=== PATIENT | male | born 1975 | race African-American/Black ===

== ENCOUNTER 2022-05-18 09:41 | Inpatient (IN) | payer OTHER ==
[2022-05-18 10:26] VITALS: BMI 23.5
[2022-05-18] MEDS ORDERED: LOPERAMIDE HCL 2 MG CAPSULE PO PRN (10:46)
[2022-05-18] MEDS ORDERED: DICYCLOMINE HCL 10 MG CAPSULE PO PRN (10:46)
[2022-05-18] MEDS ORDERED: ACETAMINOPHEN 325 MG TABLET (FP) PO PRN ×2 (10:46)
[2022-05-18] MEDS ORDERED: ONDANSETRON *ODT* 4 MG TABLET SL PRN (10:46)
[2022-05-18] MEDS ORDERED: MAGNESIUM CITRATE 300 ML BOTTLE PO PRN (10:46)
[2022-05-18] MEDS ORDERED: IBUPROFEN 600 MG TABLET (FP) PO PRN (10:46)
[2022-05-18] MEDS ORDERED: MAGNESIUM HYDROX 2400MG/30ML ORAL SUSPENSION 30 ML CUP PO PRN (10:46)
[2022-05-18] MEDS ORDERED: BISMUTH SUBSALICYLATE 262 MG/15 ML BTL PO PRN (10:46)
[2022-05-18] MEDS ORDERED: IBUPROFEN 400 MG TABLET (FP) PO PRN (10:46)
[2022-05-18] MEDS ORDERED: BENZOCAINE/MENTHOL (CHLORASEPTIC ) LOZENGE MM PRN (10:46)
[2022-05-18] MEDS ORDERED: MAG HYDROX/AL HYDROX/SIMETH 30 ML UNIT-DOSE CUP PO PRN (10:46)
[2022-05-18] MEDS ORDERED: chlordiazePOXIDE HCL 25 MG CAPSULE ONE (11:22)
[2022-05-18] MEDS ORDERED: NICOTINE 14 MG/24 HOURS TOPICAL PATCH TD ONE (11:22)
[2022-05-18] MEDS: chlordiazePOXIDE HCL 25 MG CAPSULE PO SCH ×3 (11:25→22:11)
[2022-05-18] MEDS: NICOTINE 14 MG/24 HOURS TOPICAL PATCH TD SCH (11:25)
[2022-05-18] MEDS: PRENATAL VITAMINS W/ FOLIC ACID TABLET (FP) PO SCH (12:16)
[2022-05-18] MEDS: hydrOXYzine PAMOATE 25 MG CAPSULE (FP) PO SCH ×3 (13:15→22:07)
[2022-05-18 14:26] LABS: ALBUMIN 3.7 g/dl (3.4-5.0); CALCIUM 8.9 mg/dL (8.5-10.1); HEMATOCRIT 36.6 % (35.4-49); HEMOGLOBIN 12.9 GM/dL (11.7-16.9); MCH 29.9 pg (25.7-33.7); MCHC 35.2 g/dl (32.0-35.9); MEAN PLT VOLUME 7.3 fl (7.5-11.1); PLATELET COUNT 234 10^3/uL (134-434); RBC 4.31 M/mm3 (4.00-5.60); RDW 13.2 % (11.9-15.9); WHITE BLOOD COUNT 3.1 K/mm3 (4.0-10.0)
[2022-05-18 14:27] LABS: BLOOD UREA NITROGEN 15.1 mg/dL (7-18)
[2022-05-18 14:30] LABS: CREATININE 0.7 mg/dL (0.55-1.3)
[2022-05-18 14:31] LABS: BILIRUBIN,TOTAL 0.7 mg/dL (0.2-1); TOT PROT 6.9 g/dl (6.4-8.2)
[2022-05-18] MEDS: NICOTINE 10 MG CARTRIDGE (INHALER) IH PRN (18:49)
[2022-05-18] MEDS ORDERED: PATIENT'S OWN MEDICATION (NON-FORMULARY) (Mometasone/Formoterol [Dulera 100 Mcg-5 Mcg Inha IH SCH (22:00)
[2022-05-18] MEDS: chlordiazePOXIDE HCL 25 MG CAPSULE PO PRN (22:07)
[2022-05-18] MEDS: THIAMINE HCL 100 MG TABLET (FP) PO SCH (22:07)
[2022-05-18] MEDS: clonazePAM 0.5 MG ODT TABLETS SL SCH (22:07)
[2022-05-18] MEDS: ATORVASTATIN CA 40 MG TABLET (FP) PO SCH (22:07)
[2022-05-18] MEDS: MELATONIN 5 MG TABLETS PO SCH (22:10)
[2022-05-18] MEDS: BUDESONIDE/FORMETEROL FUMARATE 160/4.5 mcg INHALER IH SCH (22:10)
[2022-05-19] MEDS: chlordiazePOXIDE HCL 25 MG CAPSULE PO SCH ×4 (05:38→22:05)
[2022-05-19] MEDS: hydrOXYzine PAMOATE 25 MG CAPSULE (FP) PO SCH ×5 (05:38→22:05)
[2022-05-19] MEDS: METHOCARBAMOL 500 MG TABLET PO PRN (10:13)
[2022-05-19] MEDS: PRENATAL VITAMINS W/ FOLIC ACID TABLET (FP) PO SCH (10:13)
[2022-05-19] MEDS: amLODIPine BESYLATE 5 MG TABLET (FP) PO SCH (10:13)
[2022-05-19] MEDS: clonazePAM 0.5 MG ODT TABLETS SL SCH ×2 (10:14→22:05)
[2022-05-19] MEDS: NICOTINE 14 MG/24 HOURS TOPICAL PATCH TD SCH (10:14)
[2022-05-19] MEDS: BUDESONIDE/FORMETEROL FUMARATE 160/4.5 mcg INHALER IH SCH ×2 (10:15→22:05)
[2022-05-19] MEDS: NICOTINE 10 MG CARTRIDGE (INHALER) IH PRN ×2 (10:48→17:38)
[2022-05-19 11:33] LABS: HIV INTERPRETATION NEGATIVE (NEGATIVE)
[2022-05-19] MEDS: LOSARTAN POTASSIUM 25 MG TABLET PO SCH (11:37)
[2022-05-19] MEDS: chlordiazePOXIDE HCL 25 MG CAPSULE PO PRN (13:29)
[2022-05-19] MEDS ORDERED: traZODone HCL 100 MG TABLET (FP) PO SCH (22:00)
[2022-05-19] MEDS ORDERED: BENZTROPINE MESYLATE 2 MG TABLET PO SCH (22:00)
[2022-05-19] MEDS: BENZTROPINE MESYLATE 1 MG TABLET PO SCH (22:05)
[2022-05-19] MEDS: ATORVASTATIN CA 40 MG TABLET (FP) PO SCH (22:05)
[2022-05-19] MEDS: MELATONIN 5 MG TABLETS PO SCH (22:05)
[2022-05-19] MEDS: THIAMINE HCL 100 MG TABLET (FP) PO SCH (22:05)
[2022-05-19] MEDS: traZODone HCL 50 MG TABLET (FP) PO SCH (22:05)
[2022-05-19] MEDS ORDERED: ASPIRIN 81 MG CHEWABLE TABLETS PO ONE (23:16)
[2022-05-20] MEDS: hydrOXYzine PAMOATE 25 MG CAPSULE (FP) PO SCH ×5 (06:19→22:41)
[2022-05-20] MEDS: chlordiazePOXIDE HCL 25 MG CAPSULE PO SCH ×4 (06:53→22:41)
[2022-05-20] MEDS ORDERED: OLANZAPINE PO SCH (10:00)
[2022-05-20] MEDS: BENZTROPINE MESYLATE 1 MG TABLET PO SCH ×2 (10:11→22:41)
[2022-05-20] MEDS: clonazePAM 0.5 MG ODT TABLETS SL SCH ×2 (10:11→22:41)
[2022-05-20] MEDS: amLODIPine BESYLATE 5 MG TABLET (FP) PO SCH (10:11)
[2022-05-20] MEDS: BUDESONIDE/FORMETEROL FUMARATE 160/4.5 mcg INHALER IH SCH ×2 (10:11→23:04)
[2022-05-20] MEDS: LOSARTAN POTASSIUM 25 MG TABLET PO SCH (10:11)
[2022-05-20] MEDS: PRENATAL VITAMINS W/ FOLIC ACID TABLET (FP) PO SCH (10:12)
[2022-05-20] MEDS: NICOTINE 14 MG/24 HOURS TOPICAL PATCH TD SCH (12:22)
[2022-05-20] MEDS: NICOTINE 10 MG CARTRIDGE (INHALER) IH PRN (17:56)
[2022-05-20] MEDS: THIAMINE HCL 100 MG TABLET (FP) PO SCH (22:41)
[2022-05-20] MEDS: ATORVASTATIN CA 40 MG TABLET (FP) PO SCH (22:41)
[2022-05-20] MEDS: traZODone HCL 50 MG TABLET (FP) PO SCH (22:41)
[2022-05-20] MEDS: MELATONIN 5 MG TABLETS PO SCH (22:41)
[2022-05-21] MEDS: METHOCARBAMOL 500 MG TABLET PO PRN ×2 (00:26→10:39)
[2022-05-21] MEDS: chlordiazePOXIDE HCL 10 MG CAPSULE PO SCH ×4 (06:10→22:32)
[2022-05-21] MEDS: hydrOXYzine PAMOATE 25 MG CAPSULE (FP) PO SCH ×5 (06:10→22:31)
[2022-05-21] MEDS ORDERED: POTASSIUM CHLORIDE ORAL LIQUID 20 MEQ/15 ML PO ONE (09:15)
[2022-05-21] MEDS: BUDESONIDE/FORMETEROL FUMARATE 160/4.5 mcg INHALER IH SCH ×2 (10:38→22:31)
[2022-05-21] MEDS: PRENATAL VITAMINS W/ FOLIC ACID TABLET (FP) PO SCH (10:39)
[2022-05-21] MEDS: BENZTROPINE MESYLATE 1 MG TABLET PO SCH ×2 (10:39→22:31)
[2022-05-21] MEDS: amLODIPine BESYLATE 5 MG TABLET (FP) PO SCH (10:39)
[2022-05-21] MEDS: LOSARTAN POTASSIUM 25 MG TABLET PO SCH (10:39)
[2022-05-21] MEDS: clonazePAM 0.5 MG ODT TABLETS SL SCH ×2 (10:39→22:31)
[2022-05-21] MEDS: NICOTINE 14 MG/24 HOURS TOPICAL PATCH TD SCH (10:41)
[2022-05-21] MEDS: NICOTINE 10 MG CARTRIDGE (INHALER) IH PRN ×3 (10:45→22:33)
[2022-05-21] MEDS: chlordiazePOXIDE HCL 10 MG CAPSULE PO PRN ×2 (13:32→20:35)
[2022-05-21] MEDS: ATORVASTATIN CA 40 MG TABLET (FP) PO SCH (22:31)
[2022-05-21] MEDS: THIAMINE HCL 100 MG TABLET (FP) PO SCH (22:31)
[2022-05-21] MEDS: traZODone HCL 50 MG TABLET (FP) PO SCH (22:31)
[2022-05-21] MEDS: MELATONIN 5 MG TABLETS PO SCH (22:31)
[2022-05-22] MEDS: chlordiazePOXIDE HCL 10 MG CAPSULE PO SCH ×2 (06:03→18:06)
[2022-05-22] MEDS: hydrOXYzine PAMOATE 25 MG CAPSULE (FP) PO SCH ×5 (06:03→22:21)
[2022-05-22] MEDS: BENZTROPINE MESYLATE 1 MG TABLET PO SCH ×2 (10:20→22:19)
[2022-05-22] MEDS: amLODIPine BESYLATE 5 MG TABLET (FP) PO SCH (10:20)
[2022-05-22] MEDS: clonazePAM 0.5 MG ODT TABLETS SL SCH ×2 (10:20→22:19)
[2022-05-22] MEDS: PRENATAL VITAMINS W/ FOLIC ACID TABLET (FP) PO SCH (10:20)
[2022-05-22] MEDS: BUDESONIDE/FORMETEROL FUMARATE 160/4.5 mcg INHALER IH SCH ×2 (10:20→22:21)
[2022-05-22] MEDS: LOSARTAN POTASSIUM 25 MG TABLET PO SCH (10:21)
[2022-05-22] MEDS: NICOTINE 14 MG/24 HOURS TOPICAL PATCH TD SCH (10:21)
[2022-05-22] MEDS: NICOTINE 10 MG CARTRIDGE (INHALER) IH PRN (11:14)
[2022-05-22] MEDS: METHOCARBAMOL 500 MG TABLET PO PRN (13:07)
[2022-05-22] MEDS ORDERED: OLANZAPINE 10 MG, OLANZAPINE 5 MG PO SCH (22:00)
[2022-05-22] MEDS ORDERED: OLANZapine 7.5 MG TABLET PO SCH (22:00)
[2022-05-22] MEDS ORDERED: OLANZapine 5 MG TABLET ONE (22:05)
[2022-05-22] MEDS ORDERED: OLANZapine 10 MG TABLET ONE (22:05)
[2022-05-22] MEDS: traZODone HCL 50 MG TABLET (FP) PO SCH (22:19)
[2022-05-22] MEDS: ATORVASTATIN CA 40 MG TABLET (FP) PO SCH (22:19)
[2022-05-22] MEDS: MELATONIN 5 MG TABLETS PO SCH (22:19)
[2022-05-22] MEDS: THIAMINE HCL 100 MG TABLET (FP) PO SCH (22:20)
[2022-05-23] MEDS ORDERED: chlordiazePOXIDE HCL 10 MG CAPSULE PO ONE (05:00)
[2022-05-23] MEDS: hydrOXYzine PAMOATE 25 MG CAPSULE (FP) PO SCH ×3 (06:22→13:12)
[2022-05-23] MEDS: amLODIPine BESYLATE 5 MG TABLET (FP) PO SCH (09:44)
[2022-05-23] MEDS: LOSARTAN POTASSIUM 25 MG TABLET PO SCH (09:44)
[2022-05-23] MEDS: clonazePAM 0.5 MG ODT TABLETS SL SCH (09:44)
[2022-05-23] MEDS: BENZTROPINE MESYLATE 1 MG TABLET PO SCH (09:44)
[2022-05-23] MEDS: PRENATAL VITAMINS W/ FOLIC ACID TABLET (FP) PO SCH (09:44)
[2022-05-23] MEDS: BUDESONIDE/FORMETEROL FUMARATE 160/4.5 mcg INHALER IH SCH (09:45)
[2022-05-23] MEDS: NICOTINE 14 MG/24 HOURS TOPICAL PATCH TD SCH (09:45)
[2022-05-23] MEDS ORDERED: OLANZapine 5 MG TABLET PO SCH (10:00)
[2022-05-23] MEDS: NICOTINE 10 MG CARTRIDGE (INHALER) IH PRN (12:35)
[2022-05-23 13:41] VITALS: BP 145/103; PULSE 98; TEMP 98.1
== END 2022-05-23 15:01 | disposition other institution (70) | DRG 774 ==
LOC: YASAS 09:41 → Y6N 11:05
PROVIDERS: ADMIT Allergy & Immunology; ATTEND Surgery
PROC: HZ2ZZZZ Detoxification Services for Substance Abuse Treatment (ICD-10-PCS; principal; 2022-05-18)
DX: F10.230 Alcohol dependence with withdrawal, uncomplicated (principal); F14.10 Cocaine abuse, uncomplicated; F12.20 Cannabis dependence, uncomplicated; F17.210 Nicotine dependence, cigarettes, uncomplicated; F25.1 Schizoaffective disorder, depressive type; I10 Essential (primary) hypertension; J45.20 Mild intermittent asthma, uncomplicated; G24.01 Drug induced subacute dyskinesia; I69.854 Hemiplegia and hemiparesis following other cerebrovascular disease affecting left non-dominant side; Z99.89 Dependence on other enabling machines and devices; Z91.013 Allergy to seafood
CPT/HCPCS: 36415; 80053; 85027; 86780; 87389; 87811; 93005; 93010; C9803-CS; U0003; U0005

== ENCOUNTER 2022-05-19 23:53 | Emergency (ER) | payer OTHER ==
[2022-05-20 00:27] VITALS: BMI 25.3
[2022-05-20] MEDS ORDERED: chlordiazePOXIDE HCL 25 MG CAPSULE PO ONE (00:56)
[2022-05-20] MEDS ORDERED: diazePAM CARPU-JECT 10 MG/2 ML DISP.SYRIN IVPUSH ONE (00:57)
[2022-05-20] MEDS ORDERED: diazePAM CARPU-JECT 10 MG/2 ML DISP.SYRIN ONE (01:33)
[2022-05-20] MEDS ORDERED: chlordiazePOXIDE HCL 25 MG CAPSULE ONE (01:34)
[2022-05-20 01:50] LABS: BASO % 0.6 % (0-2.0); EOS % 6.6 % (0-4.5); HEMATOCRIT 36.9 % (35.4-49); LYMPH % 38.2 % (8-40); MCH 29.7 pg (25.7-33.7); MCHC 35.3 g/dl (32.0-35.9); MEAN CELL VOLUME 84.2 fl (80-96); MEAN PLT VOLUME 6.8 fl (7.5-11.1); MONO % 8.2 % (3.8-10.2); NEUT % 46.4 % (42.8-82.8); PLATELET COUNT 261 10^3/uL (134-434); RBC 4.39 M/mm3 (4.00-5.60); RDW 13.5 % (11.9-15.9); WHITE BLOOD COUNT 3.4 K/mm3 (4.0-10.0)
[2022-05-20 01:57] LABS: INR 1.16 (0.83-1.09); PROTHROMBIN TIME (PATIENT) 13.4 SEC (9.7-13.0)
[2022-05-20 01:59] LABS: ACTIVATED PTT 31.1 SECONDS (25.2-36.5)
[2022-05-20 02:15] LABS: ALBUMIN 3.9 g/dl (3.4-5.0); CALCIUM 9.1 mg/dL (8.5-10.1)
[2022-05-20 02:16] LABS: BLOOD UREA NITROGEN 10.4 mg/dL (7-18)
[2022-05-20 02:18] LABS: CREATININE 0.7 mg/dL (0.55-1.3)
[2022-05-20 02:20] LABS: BILIRUBIN,TOTAL 0.5 mg/dL (0.2-1); TOT PROT 7.6 g/dl (6.4-8.2)
[2022-05-20 09:16] VITALS: BP 145/105; PULSE 74; TEMP 97.8
== END 2022-05-20 09:15 | disposition home or self-care (01) ==
LOC: JER 23:53
PROC: 3E033NZ Introduction of Analgesics, Hypnotics, Sedatives into Peripheral Vein, Percutaneous Approach (ICD-10-PCS; principal; 2022-05-19)
DX: M79.602 Pain in left arm (principal); F10.239 Alcohol dependence with withdrawal, unspecified
CPT/HCPCS: 36415; 71045-TC-FY; 80053; 84484; 85025; 85610; 85730; 93005; 93010; 99285-25

== ENCOUNTER 2022-05-23 15:32 | Inpatient (IN) | payer OTHER ==
[2022-05-23] MEDS ORDERED: guaiFENesin 200 MG/10 ML 10 ML UNIT-DOSE CUPS PO PRN (15:56)
[2022-05-23] MEDS ORDERED: MAGNESIUM HYDROX 2400MG/30ML ORAL SUSPENSION 30 ML CUP PO PRN (15:56)
[2022-05-23] MEDS ORDERED: MAGNESIUM CITRATE 300 ML BOTTLE PO PRN (15:56)
[2022-05-23] MEDS ORDERED: P-EPHED 60MG/TRIPROLIDI 2.5MG TABLET PO PRN (15:56)
[2022-05-23] MEDS ORDERED: MAG HYDROX/AL HYDROX/SIMETH 30 ML UNIT-DOSE CUP PO PRN (15:56)
[2022-05-23] MEDS ORDERED: LOPERAMIDE HCL 2 MG CAPSULE PO PRN (15:56)
[2022-05-23] MEDS ORDERED: BENZOCAINE/MENTHOL (CHLORASEPTIC ) LOZENGE MM PRN (15:56)
[2022-05-23] MEDS: NICOTINE 10 MG CARTRIDGE (INHALER) IH PRN ×2 (16:35→22:34)
[2022-05-23] MEDS: hydrOXYzine PAMOATE 25 MG CAPSULE (FP) PO PRN (18:59)
[2022-05-23] MEDS: THIAMINE HCL 100 MG TABLET (FP) PO SCH (21:30)
[2022-05-23] MEDS: ATORVASTATIN CA 40 MG TABLET (FP) PO SCH (21:30)
[2022-05-23] MEDS: MELATONIN 5 MG TABLETS PO SCH (21:30)
[2022-05-23] MEDS: BUDESONIDE/FORMETEROL FUMARATE 160/4.5 mcg INHALER IH SCH (21:31)
[2022-05-23] MEDS ORDERED: PATIENT'S OWN MEDICATION (NON-FORMULARY) (Mometasone/Formoterol [Dulera 100 Mcg-5 Mcg Inha IH SCH (22:00)
[2022-05-24] MEDS: NICOTINE 7 MG/24 HOURS TOPICAL PATCH TD SCH (10:08)
[2022-05-24] MEDS: LOSARTAN POTASSIUM 50 MG TABLET PO SCH (10:08)
[2022-05-24] MEDS: BUDESONIDE/FORMETEROL FUMARATE 160/4.5 mcg INHALER IH SCH ×2 (10:09→21:37)
[2022-05-24] MEDS: PRENATAL VITAMINS W/ FOLIC ACID TABLET (FP) PO SCH (10:09)
[2022-05-24] MEDS: amLODIPine BESYLATE 5 MG TABLET (FP) PO SCH (10:09)
[2022-05-24] MEDS: NICOTINE 10 MG CARTRIDGE (INHALER) IH PRN ×2 (10:09→21:41)
[2022-05-24] MEDS: hydrOXYzine PAMOATE 25 MG CAPSULE (FP) PO PRN ×2 (10:11→22:06)
[2022-05-24] MEDS ORDERED: clonazePAM 0.5 MG ODT TABLETS SL ONE (12:33)
[2022-05-24] MEDS: BENZTROPINE MESYLATE 1 MG TABLET PO SCH ×2 (13:19→21:37)
[2022-05-24] MEDS ORDERED: cloNIDine HCL 0.1 MG TABLET PO ONE (14:15)
[2022-05-24] MEDS: MELATONIN 5 MG TABLETS PO SCH (21:37)
[2022-05-24] MEDS: THIAMINE HCL 100 MG TABLET (FP) PO SCH (21:37)
[2022-05-24] MEDS: ATORVASTATIN CA 40 MG TABLET (FP) PO SCH (21:37)
[2022-05-24] MEDS: traZODone HCL 100 MG TABLET (FP) PO SCH (21:39)
[2022-05-24] MEDS: clonazePAM 0.5 MG ODT TABLETS SL SCH (21:40)
[2022-05-24] MEDS: OLANZapine 10 MG TABLET PO SCH (22:06)
[2022-05-25] MEDS: PRENATAL VITAMINS W/ FOLIC ACID TABLET (FP) PO SCH (09:59)
[2022-05-25] MEDS: NICOTINE 7 MG/24 HOURS TOPICAL PATCH TD SCH (10:00)
[2022-05-25] MEDS: LOSARTAN POTASSIUM 50 MG TABLET PO SCH (10:00)
[2022-05-25] MEDS: BENZTROPINE MESYLATE 1 MG TABLET PO SCH ×2 (10:00→21:21)
[2022-05-25] MEDS: amLODIPine BESYLATE 5 MG TABLET (FP) PO SCH (10:01)
[2022-05-25] MEDS: clonazePAM 0.5 MG ODT TABLETS SL SCH ×2 (10:01→21:21)
[2022-05-25] MEDS: BUDESONIDE/FORMETEROL FUMARATE 160/4.5 mcg INHALER IH SCH ×2 (10:01→21:21)
[2022-05-25] MEDS: NICOTINE 10 MG CARTRIDGE (INHALER) IH PRN ×2 (14:25→20:21)
[2022-05-25] MEDS: hydrOXYzine PAMOATE 25 MG CAPSULE (FP) PO PRN (17:24)
[2022-05-25] MEDS: THIAMINE HCL 100 MG TABLET (FP) PO SCH (21:21)
[2022-05-25] MEDS: ATORVASTATIN CA 40 MG TABLET (FP) PO SCH (21:22)
[2022-05-25] MEDS: OLANZapine 10 MG TABLET PO SCH (21:22)
[2022-05-25] MEDS: MELATONIN 5 MG TABLETS PO SCH (21:22)
[2022-05-25] MEDS: traZODone HCL 100 MG TABLET (FP) PO SCH (21:22)
[2022-05-26] MEDS: PRENATAL VITAMINS W/ FOLIC ACID TABLET (FP) PO SCH (10:25)
[2022-05-26] MEDS: BENZTROPINE MESYLATE 1 MG TABLET PO SCH ×2 (10:26→21:48)
[2022-05-26] MEDS: amLODIPine BESYLATE 5 MG TABLET (FP) PO SCH (10:26)
[2022-05-26] MEDS: clonazePAM 0.5 MG ODT TABLETS SL SCH ×2 (10:26→21:49)
[2022-05-26] MEDS: BUDESONIDE/FORMETEROL FUMARATE 160/4.5 mcg INHALER IH SCH ×2 (10:26→21:49)
[2022-05-26] MEDS: LOSARTAN POTASSIUM 50 MG TABLET PO SCH (10:27)
[2022-05-26] MEDS: NICOTINE 7 MG/24 HOURS TOPICAL PATCH TD SCH (10:28)
[2022-05-26] MEDS: NICOTINE 10 MG CARTRIDGE (INHALER) IH PRN ×3 (12:19→23:17)
[2022-05-26] MEDS: hydrOXYzine PAMOATE 25 MG CAPSULE (FP) PO PRN ×2 (14:22→21:50)
[2022-05-26] MEDS ORDERED: cloNIDine HCL 0.1 MG TABLET PO ONE ×2 (16:11→23:41)
[2022-05-26] MEDS: ATORVASTATIN CA 40 MG TABLET (FP) PO SCH (21:48)
[2022-05-26] MEDS: traZODone HCL 100 MG TABLET (FP) PO SCH (21:49)
[2022-05-26] MEDS: OLANZapine 10 MG TABLET PO SCH (21:49)
[2022-05-26] MEDS: THIAMINE HCL 100 MG TABLET (FP) PO SCH (21:49)
[2022-05-26] MEDS: MELATONIN 5 MG TABLETS PO SCH (21:54)
[2022-05-27] MEDS: hydrOXYzine PAMOATE 25 MG CAPSULE (FP) PO PRN ×3 (06:25→21:46)
[2022-05-27] MEDS: PRENATAL VITAMINS W/ FOLIC ACID TABLET (FP) PO SCH (10:24)
[2022-05-27] MEDS: BUDESONIDE/FORMETEROL FUMARATE 160/4.5 mcg INHALER IH SCH ×2 (10:25→21:45)
[2022-05-27] MEDS: amLODIPine BESYLATE 5 MG TABLET (FP) PO SCH (10:26)
[2022-05-27] MEDS: BENZTROPINE MESYLATE 1 MG TABLET PO SCH ×2 (10:26→21:46)
[2022-05-27] MEDS: LOSARTAN POTASSIUM 50 MG TABLET PO SCH (10:26)
[2022-05-27] MEDS: clonazePAM 0.5 MG ODT TABLETS SL SCH ×2 (10:27→21:46)
[2022-05-27] MEDS: NICOTINE 10 MG CARTRIDGE (INHALER) IH PRN ×2 (10:27→18:20)
[2022-05-27] MEDS: NICOTINE 7 MG/24 HOURS TOPICAL PATCH TD SCH (10:27)
[2022-05-27] MEDS: traZODone HCL 100 MG TABLET (FP) PO SCH (21:45)
[2022-05-27] MEDS: ATORVASTATIN CA 40 MG TABLET (FP) PO SCH (21:45)
[2022-05-27] MEDS: THIAMINE HCL 100 MG TABLET (FP) PO SCH (21:45)
[2022-05-27] MEDS: OLANZapine 10 MG TABLET PO SCH (21:45)
[2022-05-27] MEDS: MELATONIN 5 MG TABLETS PO SCH (21:56)
[2022-05-28] MEDS: BENZTROPINE MESYLATE 1 MG TABLET PO SCH ×2 (09:04→21:34)
[2022-05-28] MEDS: clonazePAM 0.5 MG ODT TABLETS SL SCH ×2 (09:05→21:33)
[2022-05-28] MEDS: amLODIPine BESYLATE 5 MG TABLET (FP) PO SCH (09:05)
[2022-05-28] MEDS: NICOTINE 7 MG/24 HOURS TOPICAL PATCH TD SCH (09:05)
[2022-05-28] MEDS: LOSARTAN POTASSIUM 50 MG TABLET PO SCH (09:06)
[2022-05-28] MEDS: PRENATAL VITAMINS W/ FOLIC ACID TABLET (FP) PO SCH (09:06)
[2022-05-28] MEDS: BUDESONIDE/FORMETEROL FUMARATE 160/4.5 mcg INHALER IH SCH ×2 (09:07→21:33)
[2022-05-28] MEDS: IBUPROFEN 400 MG TABLET (FP) PO PRN (09:07)
[2022-05-28] MEDS: NICOTINE 10 MG CARTRIDGE (INHALER) IH PRN ×2 (14:23→21:35)
[2022-05-28] MEDS: hydrOXYzine PAMOATE 25 MG CAPSULE (FP) PO PRN ×2 (16:43→21:34)
[2022-05-28] MEDS: ATORVASTATIN CA 40 MG TABLET (FP) PO SCH (21:33)
[2022-05-28] MEDS: traZODone HCL 100 MG TABLET (FP) PO SCH (21:34)
[2022-05-28] MEDS: THIAMINE HCL 100 MG TABLET (FP) PO SCH (21:34)
[2022-05-28] MEDS: MELATONIN 5 MG TABLETS PO SCH (21:35)
[2022-05-28] MEDS: OLANZapine 10 MG TABLET PO SCH (21:56)
[2022-05-29] MEDS: hydrOXYzine PAMOATE 25 MG CAPSULE (FP) PO PRN ×3 (06:26→21:26)
[2022-05-29] MEDS: amLODIPine BESYLATE 10 MG TABLET (FP) PO SCH ×2 (07:15→10:06)
[2022-05-29] MEDS: PRENATAL VITAMINS W/ FOLIC ACID TABLET (FP) PO SCH (10:06)
[2022-05-29] MEDS: LOSARTAN POTASSIUM 50 MG TABLET PO SCH (10:06)
[2022-05-29] MEDS: BENZTROPINE MESYLATE 1 MG TABLET PO SCH ×2 (10:06→21:25)
[2022-05-29] MEDS: clonazePAM 0.5 MG ODT TABLETS SL SCH ×2 (10:06→21:25)
[2022-05-29] MEDS: IBUPROFEN 400 MG TABLET (FP) PO PRN (10:07)
[2022-05-29] MEDS: BUDESONIDE/FORMETEROL FUMARATE 160/4.5 mcg INHALER IH SCH ×2 (10:07→22:19)
[2022-05-29] MEDS: NICOTINE 7 MG/24 HOURS TOPICAL PATCH TD SCH (10:33)
[2022-05-29] MEDS: NICOTINE 10 MG CARTRIDGE (INHALER) IH PRN ×3 (12:59→21:28)
[2022-05-29] MEDS: THIAMINE HCL 100 MG TABLET (FP) PO SCH (21:25)
[2022-05-29] MEDS: ATORVASTATIN CA 40 MG TABLET (FP) PO SCH (21:25)
[2022-05-29] MEDS: traZODone HCL 100 MG TABLET (FP) PO SCH (21:25)
[2022-05-29] MEDS: MELATONIN 5 MG TABLETS PO SCH (21:26)
[2022-05-29] MEDS: OLANZapine 10 MG TABLET PO SCH (22:19)
[2022-05-30] MEDS: hydrOXYzine PAMOATE 25 MG CAPSULE (FP) PO PRN ×3 (06:07→21:20)
[2022-05-30] MEDS: PRENATAL VITAMINS W/ FOLIC ACID TABLET (FP) PO SCH (09:58)
[2022-05-30] MEDS: amLODIPine BESYLATE 10 MG TABLET (FP) PO SCH (09:58)
[2022-05-30] MEDS: NICOTINE 7 MG/24 HOURS TOPICAL PATCH TD SCH (09:59)
[2022-05-30] MEDS: BUDESONIDE/FORMETEROL FUMARATE 160/4.5 mcg INHALER IH SCH ×2 (09:59→21:20)
[2022-05-30] MEDS: clonazePAM 0.5 MG ODT TABLETS SL SCH ×2 (09:59→21:20)
[2022-05-30] MEDS: LOSARTAN POTASSIUM 50 MG TABLET PO SCH (09:59)
[2022-05-30] MEDS: BENZTROPINE MESYLATE 1 MG TABLET PO SCH ×2 (09:59→21:20)
[2022-05-30] MEDS: NICOTINE 10 MG CARTRIDGE (INHALER) IH PRN ×2 (11:00→22:00)
[2022-05-30] MEDS: MELATONIN 5 MG TABLETS PO SCH (21:20)
[2022-05-30] MEDS: OLANZapine 10 MG TABLET PO SCH (21:20)
[2022-05-30] MEDS: THIAMINE HCL 100 MG TABLET (FP) PO SCH (21:20)
[2022-05-30] MEDS: traZODone HCL 100 MG TABLET (FP) PO SCH (21:20)
[2022-05-30] MEDS: ATORVASTATIN CA 40 MG TABLET (FP) PO SCH (21:20)
[2022-05-31] MEDS: hydrOXYzine PAMOATE 25 MG CAPSULE (FP) PO PRN ×2 (06:05→21:19)
[2022-05-31] MEDS: NICOTINE 7 MG/24 HOURS TOPICAL PATCH TD SCH (10:12)
[2022-05-31] MEDS: BUDESONIDE/FORMETEROL FUMARATE 160/4.5 mcg INHALER IH SCH ×2 (10:12→21:19)
[2022-05-31] MEDS: PRENATAL VITAMINS W/ FOLIC ACID TABLET (FP) PO SCH (10:12)
[2022-05-31] MEDS: amLODIPine BESYLATE 10 MG TABLET (FP) PO SCH (10:13)
[2022-05-31] MEDS: BENZTROPINE MESYLATE 1 MG TABLET PO SCH ×2 (10:13→21:19)
[2022-05-31] MEDS: clonazePAM 0.5 MG ODT TABLETS SL SCH ×2 (10:13→21:20)
[2022-05-31] MEDS: NICOTINE 10 MG CARTRIDGE (INHALER) IH PRN ×2 (10:14→21:21)
[2022-05-31] MEDS: LOSARTAN POTASSIUM 50 MG TABLET PO SCH (10:14)
[2022-05-31] MEDS: THIAMINE HCL 100 MG TABLET (FP) PO SCH (21:19)
[2022-05-31] MEDS: ATORVASTATIN CA 40 MG TABLET (FP) PO SCH (21:19)
[2022-05-31] MEDS: traZODone HCL 100 MG TABLET (FP) PO SCH (21:19)
[2022-05-31] MEDS: MELATONIN 5 MG TABLETS PO SCH (21:20)
[2022-05-31] MEDS: OLANZapine 10 MG TABLET PO SCH (21:20)
[2022-06-01] MEDS: hydrOXYzine PAMOATE 25 MG CAPSULE (FP) PO PRN ×3 (06:08→21:32)
[2022-06-01] MEDS: PRENATAL VITAMINS W/ FOLIC ACID TABLET (FP) PO SCH (09:51)
[2022-06-01] MEDS: BUDESONIDE/FORMETEROL FUMARATE 160/4.5 mcg INHALER IH SCH ×2 (09:51→21:31)
[2022-06-01] MEDS: amLODIPine BESYLATE 10 MG TABLET (FP) PO SCH (09:52)
[2022-06-01] MEDS: clonazePAM 0.5 MG ODT TABLETS SL SCH ×2 (09:52→21:32)
[2022-06-01] MEDS: BENZTROPINE MESYLATE 1 MG TABLET PO SCH ×2 (09:52→21:31)
[2022-06-01] MEDS: NICOTINE 7 MG/24 HOURS TOPICAL PATCH TD SCH (09:53)
[2022-06-01] MEDS: LOSARTAN POTASSIUM 50 MG TABLET PO SCH (09:53)
[2022-06-01] MEDS: NICOTINE 10 MG CARTRIDGE (INHALER) IH PRN ×3 (12:38→22:45)
[2022-06-01] MEDS: MELATONIN 5 MG TABLETS PO SCH (21:31)
[2022-06-01] MEDS: ATORVASTATIN CA 40 MG TABLET (FP) PO SCH (21:31)
[2022-06-01] MEDS: OLANZapine 10 MG TABLET PO SCH (21:32)
[2022-06-01] MEDS: traZODone HCL 100 MG TABLET (FP) PO SCH (21:32)
[2022-06-01] MEDS: THIAMINE HCL 100 MG TABLET (FP) PO SCH (21:32)
[2022-06-02] MEDS: hydrOXYzine PAMOATE 25 MG CAPSULE (FP) PO PRN ×2 (06:33→18:06)
[2022-06-02] MEDS: NICOTINE 10 MG CARTRIDGE (INHALER) IH PRN ×3 (07:24→21:21)
[2022-06-02] MEDS: amLODIPine BESYLATE 10 MG TABLET (FP) PO SCH ×2 (08:57→09:02)
[2022-06-02] MEDS: PRENATAL VITAMINS W/ FOLIC ACID TABLET (FP) PO SCH (09:01)
[2022-06-02] MEDS: BUDESONIDE/FORMETEROL FUMARATE 160/4.5 mcg INHALER IH SCH ×2 (09:01→21:22)
[2022-06-02] MEDS: clonazePAM 0.5 MG ODT TABLETS SL SCH ×2 (09:01→21:22)
[2022-06-02] MEDS: LOSARTAN POTASSIUM 50 MG TABLET PO SCH (09:01)
[2022-06-02] MEDS: NICOTINE 7 MG/24 HOURS TOPICAL PATCH TD SCH (09:02)
[2022-06-02] MEDS: BENZTROPINE MESYLATE 1 MG TABLET PO SCH ×2 (09:05→21:23)
[2022-06-02] MEDS: MELATONIN 5 MG TABLETS PO SCH (21:21)
[2022-06-02] MEDS: THIAMINE HCL 100 MG TABLET (FP) PO SCH (21:21)
[2022-06-02] MEDS: OLANZapine 10 MG TABLET PO SCH (21:22)
[2022-06-02] MEDS: ATORVASTATIN CA 40 MG TABLET (FP) PO SCH (21:23)
[2022-06-02] MEDS: traZODone HCL 100 MG TABLET (FP) PO SCH (21:23)
[2022-06-03] MEDS: amLODIPine BESYLATE 10 MG TABLET (FP) PO SCH (09:02)
[2022-06-03] MEDS: LOSARTAN POTASSIUM 50 MG TABLET PO SCH (09:02)
[2022-06-03] MEDS: ACETAMINOPHEN 325 MG TABLET (FP) PO PRN (09:02)
[2022-06-03] MEDS: BUDESONIDE/FORMETEROL FUMARATE 160/4.5 mcg INHALER IH SCH ×2 (09:52→21:40)
[2022-06-03] MEDS: clonazePAM 0.5 MG ODT TABLETS SL SCH ×2 (09:53→21:44)
[2022-06-03] MEDS: PRENATAL VITAMINS W/ FOLIC ACID TABLET (FP) PO SCH (09:53)
[2022-06-03] MEDS: NICOTINE 7 MG/24 HOURS TOPICAL PATCH TD SCH (09:53)
[2022-06-03] MEDS: BENZTROPINE MESYLATE 1 MG TABLET PO SCH ×2 (09:53→21:43)
[2022-06-03] MEDS: NICOTINE 10 MG CARTRIDGE (INHALER) IH PRN ×3 (10:53→21:45)
[2022-06-03] MEDS: hydrOXYzine PAMOATE 25 MG CAPSULE (FP) PO PRN ×2 (16:54→21:41)
[2022-06-03] MEDS: OLANZapine 10 MG TABLET PO SCH (21:42)
[2022-06-03] MEDS: ATORVASTATIN CA 40 MG TABLET (FP) PO SCH (21:42)
[2022-06-03] MEDS: traZODone HCL 100 MG TABLET (FP) PO SCH (21:43)
[2022-06-03] MEDS: MELATONIN 5 MG TABLETS PO SCH (21:44)
[2022-06-03] MEDS: THIAMINE HCL 100 MG TABLET (FP) PO SCH (21:44)
[2022-06-04] MEDS: hydrOXYzine PAMOATE 25 MG CAPSULE (FP) PO PRN ×3 (06:25→16:37)
[2022-06-04] MEDS: NICOTINE 10 MG CARTRIDGE (INHALER) IH PRN ×3 (08:44→21:36)
[2022-06-04] MEDS: PRENATAL VITAMINS W/ FOLIC ACID TABLET (FP) PO SCH (09:58)
[2022-06-04] MEDS: amLODIPine BESYLATE 10 MG TABLET (FP) PO SCH (10:00)
[2022-06-04] MEDS: BUDESONIDE/FORMETEROL FUMARATE 160/4.5 mcg INHALER IH SCH ×2 (10:00→21:33)
[2022-06-04] MEDS: clonazePAM 0.5 MG ODT TABLETS SL SCH ×2 (10:00→21:34)
[2022-06-04] MEDS: LOSARTAN POTASSIUM 50 MG TABLET PO SCH (10:00)
[2022-06-04] MEDS: NICOTINE 7 MG/24 HOURS TOPICAL PATCH TD SCH (10:01)
[2022-06-04] MEDS: BENZTROPINE MESYLATE 1 MG TABLET PO SCH ×2 (10:01→21:34)
[2022-06-04] MEDS: OLANZapine 10 MG TABLET PO SCH (21:33)
[2022-06-04] MEDS: THIAMINE HCL 100 MG TABLET (FP) PO SCH (21:33)
[2022-06-04] MEDS: traZODone HCL 100 MG TABLET (FP) PO SCH (21:34)
[2022-06-04] MEDS: ATORVASTATIN CA 40 MG TABLET (FP) PO SCH (21:34)
[2022-06-04] MEDS: MELATONIN 5 MG TABLETS PO SCH (21:34)
[2022-06-05] MEDS: PRENATAL VITAMINS W/ FOLIC ACID TABLET (FP) PO SCH (10:02)
[2022-06-05] MEDS: BUDESONIDE/FORMETEROL FUMARATE 160/4.5 mcg INHALER IH SCH ×2 (10:03→21:44)
[2022-06-05] MEDS: BENZTROPINE MESYLATE 1 MG TABLET PO SCH ×2 (10:03→21:44)
[2022-06-05] MEDS: clonazePAM 0.5 MG ODT TABLETS SL SCH ×2 (10:04→21:44)
[2022-06-05] MEDS: amLODIPine BESYLATE 10 MG TABLET (FP) PO SCH (10:04)
[2022-06-05] MEDS: LOSARTAN POTASSIUM 50 MG TABLET PO SCH (10:04)
[2022-06-05] MEDS: NICOTINE 7 MG/24 HOURS TOPICAL PATCH TD SCH (10:04)
[2022-06-05] MEDS: hydrOXYzine PAMOATE 25 MG CAPSULE (FP) PO PRN ×2 (10:05→21:45)
[2022-06-05] MEDS: NICOTINE 10 MG CARTRIDGE (INHALER) IH PRN ×4 (10:05→22:43)
[2022-06-05] MEDS: ACETAMINOPHEN 325 MG TABLET (FP) PO PRN (16:32)
[2022-06-05] MEDS: ATORVASTATIN CA 40 MG TABLET (FP) PO SCH (21:44)
[2022-06-05] MEDS: traZODone HCL 100 MG TABLET (FP) PO SCH (21:44)
[2022-06-05] MEDS: MELATONIN 5 MG TABLETS PO SCH (21:44)
[2022-06-05] MEDS: THIAMINE HCL 100 MG TABLET (FP) PO SCH (21:44)
[2022-06-05] MEDS: OLANZapine 10 MG TABLET PO SCH (21:45)
[2022-06-06] MEDS: NICOTINE 10 MG CARTRIDGE (INHALER) IH PRN ×4 (06:58→20:09)
[2022-06-06] MEDS: hydrOXYzine PAMOATE 25 MG CAPSULE (FP) PO PRN ×3 (06:58→21:44)
[2022-06-06] MEDS: clonazePAM 0.5 MG ODT TABLETS SL SCH ×2 (10:02→21:56)
[2022-06-06] MEDS: BENZTROPINE MESYLATE 1 MG TABLET PO SCH ×2 (10:02→21:44)
[2022-06-06] MEDS: PRENATAL VITAMINS W/ FOLIC ACID TABLET (FP) PO SCH (10:03)
[2022-06-06] MEDS: LOSARTAN POTASSIUM 50 MG TABLET PO SCH (10:03)
[2022-06-06] MEDS: BUDESONIDE/FORMETEROL FUMARATE 160/4.5 mcg INHALER IH SCH ×2 (10:03→21:43)
[2022-06-06] MEDS: amLODIPine BESYLATE 10 MG TABLET (FP) PO SCH (10:03)
[2022-06-06] MEDS: NICOTINE 7 MG/24 HOURS TOPICAL PATCH TD SCH (10:08)
[2022-06-06] MEDS: traZODone HCL 100 MG TABLET (FP) PO SCH (21:44)
[2022-06-06] MEDS: ATORVASTATIN CA 40 MG TABLET (FP) PO SCH (21:44)
[2022-06-06] MEDS: MELATONIN 5 MG TABLETS PO SCH (21:44)
[2022-06-06] MEDS: OLANZapine 10 MG TABLET PO SCH (21:44)
[2022-06-06] MEDS: THIAMINE HCL 100 MG TABLET (FP) PO SCH (21:56)
[2022-06-07] MEDS: clonazePAM 0.5 MG ODT TABLETS SL SCH ×2 (10:00→21:26)
[2022-06-07] MEDS: amLODIPine BESYLATE 10 MG TABLET (FP) PO SCH (10:00)
[2022-06-07] MEDS: BENZTROPINE MESYLATE 1 MG TABLET PO SCH ×2 (10:01→21:27)
[2022-06-07] MEDS: LOSARTAN POTASSIUM 50 MG TABLET PO SCH (10:01)
[2022-06-07] MEDS: BUDESONIDE/FORMETEROL FUMARATE 160/4.5 mcg INHALER IH SCH ×2 (10:02→21:26)
[2022-06-07] MEDS: NICOTINE 7 MG/24 HOURS TOPICAL PATCH TD SCH (10:03)
[2022-06-07] MEDS: NICOTINE 10 MG CARTRIDGE (INHALER) IH PRN ×3 (10:03→22:26)
[2022-06-07] MEDS: PRENATAL VITAMINS W/ FOLIC ACID TABLET (FP) PO SCH (10:03)
[2022-06-07] MEDS: hydrOXYzine PAMOATE 25 MG CAPSULE (FP) PO PRN ×2 (16:32→21:26)
[2022-06-07] MEDS: ATORVASTATIN CA 40 MG TABLET (FP) PO SCH (21:26)
[2022-06-07] MEDS: THIAMINE HCL 100 MG TABLET (FP) PO SCH (21:26)
[2022-06-07] MEDS: MELATONIN 5 MG TABLETS PO SCH (21:27)
[2022-06-07] MEDS: traZODone HCL 100 MG TABLET (FP) PO SCH (21:27)
[2022-06-07] MEDS: OLANZapine 10 MG TABLET PO SCH (21:27)
[2022-06-08] MEDS: BENZTROPINE MESYLATE 1 MG TABLET PO SCH ×2 (09:56→21:16)
[2022-06-08] MEDS: LOSARTAN POTASSIUM 50 MG TABLET PO SCH (09:56)
[2022-06-08] MEDS: PRENATAL VITAMINS W/ FOLIC ACID TABLET (FP) PO SCH (09:56)
[2022-06-08] MEDS: clonazePAM 0.5 MG ODT TABLETS SL SCH ×2 (09:56→21:15)
[2022-06-08] MEDS: amLODIPine BESYLATE 10 MG TABLET (FP) PO SCH (09:57)
[2022-06-08] MEDS: BUDESONIDE/FORMETEROL FUMARATE 160/4.5 mcg INHALER IH SCH ×2 (09:57→21:15)
[2022-06-08] MEDS: NICOTINE 7 MG/24 HOURS TOPICAL PATCH TD SCH (09:57)
[2022-06-08] MEDS: NICOTINE 10 MG CARTRIDGE (INHALER) IH PRN ×3 (09:59→17:48)
[2022-06-08] MEDS: hydrOXYzine PAMOATE 25 MG CAPSULE (FP) PO PRN (17:01)
[2022-06-08] MEDS: OLANZapine 10 MG TABLET PO SCH (21:16)
[2022-06-08] MEDS: MELATONIN 5 MG TABLETS PO SCH (21:16)
[2022-06-08] MEDS: ATORVASTATIN CA 40 MG TABLET (FP) PO SCH (21:16)
[2022-06-08] MEDS: THIAMINE HCL 100 MG TABLET (FP) PO SCH (21:16)
[2022-06-08] MEDS: traZODone HCL 100 MG TABLET (FP) PO SCH (21:16)
[2022-06-09] MEDS: clonazePAM 0.5 MG ODT TABLETS SL SCH ×2 (10:19→21:34)
[2022-06-09] MEDS: BENZTROPINE MESYLATE 1 MG TABLET PO SCH ×2 (10:20→21:34)
[2022-06-09] MEDS: amLODIPine BESYLATE 10 MG TABLET (FP) PO SCH (10:20)
[2022-06-09] MEDS: NICOTINE 7 MG/24 HOURS TOPICAL PATCH TD SCH (10:21)
[2022-06-09] MEDS: LOSARTAN POTASSIUM 50 MG TABLET PO SCH (10:21)
[2022-06-09] MEDS: PRENATAL VITAMINS W/ FOLIC ACID TABLET (FP) PO SCH (10:21)
[2022-06-09] MEDS: BUDESONIDE/FORMETEROL FUMARATE 160/4.5 mcg INHALER IH SCH ×2 (10:21→21:34)
[2022-06-09] MEDS: hydrOXYzine PAMOATE 25 MG CAPSULE (FP) PO PRN (14:34)
[2022-06-09] MEDS: NICOTINE 10 MG CARTRIDGE (INHALER) IH PRN (19:11)
[2022-06-09] MEDS: OLANZapine 10 MG TABLET PO SCH (21:34)
[2022-06-09] MEDS: THIAMINE HCL 100 MG TABLET (FP) PO SCH (21:34)
[2022-06-09] MEDS: MELATONIN 5 MG TABLETS PO SCH (21:34)
[2022-06-09] MEDS: traZODone HCL 100 MG TABLET (FP) PO SCH (21:34)
[2022-06-09] MEDS: ATORVASTATIN CA 40 MG TABLET (FP) PO SCH (21:34)
[2022-06-10] MEDS: clonazePAM 0.5 MG ODT TABLETS SL SCH ×2 (10:27→21:19)
[2022-06-10] MEDS: LOSARTAN POTASSIUM 50 MG TABLET PO SCH (10:27)
[2022-06-10] MEDS: BENZTROPINE MESYLATE 1 MG TABLET PO SCH ×2 (10:27→21:21)
[2022-06-10] MEDS: PRENATAL VITAMINS W/ FOLIC ACID TABLET (FP) PO SCH (10:28)
[2022-06-10] MEDS: amLODIPine BESYLATE 10 MG TABLET (FP) PO SCH (10:28)
[2022-06-10] MEDS: BUDESONIDE/FORMETEROL FUMARATE 160/4.5 mcg INHALER IH SCH ×2 (10:28→21:19)
[2022-06-10] MEDS: NICOTINE 7 MG/24 HOURS TOPICAL PATCH TD SCH (10:28)
[2022-06-10] MEDS: hydrOXYzine PAMOATE 25 MG CAPSULE (FP) PO PRN ×2 (15:54→21:19)
[2022-06-10] MEDS: NICOTINE 10 MG CARTRIDGE (INHALER) IH PRN ×2 (16:07→19:16)
[2022-06-10] MEDS: THIAMINE HCL 100 MG TABLET (FP) PO SCH (21:19)
[2022-06-10] MEDS: ATORVASTATIN CA 40 MG TABLET (FP) PO SCH (21:19)
[2022-06-10] MEDS: traZODone HCL 100 MG TABLET (FP) PO SCH (21:19)
[2022-06-10] MEDS: OLANZapine 10 MG TABLET PO SCH (21:19)
[2022-06-10] MEDS: MELATONIN 5 MG TABLETS PO SCH (21:20)
[2022-06-11] MEDS: BUDESONIDE/FORMETEROL FUMARATE 160/4.5 mcg INHALER IH SCH ×2 (09:55→21:32)
[2022-06-11] MEDS: PRENATAL VITAMINS W/ FOLIC ACID TABLET (FP) PO SCH (09:55)
[2022-06-11] MEDS: amLODIPine BESYLATE 10 MG TABLET (FP) PO SCH (09:56)
[2022-06-11] MEDS: BENZTROPINE MESYLATE 1 MG TABLET PO SCH ×2 (09:56→21:32)
[2022-06-11] MEDS: clonazePAM 0.5 MG ODT TABLETS SL SCH ×2 (09:56→21:33)
[2022-06-11] MEDS: NICOTINE 7 MG/24 HOURS TOPICAL PATCH TD SCH (09:57)
[2022-06-11] MEDS: LOSARTAN POTASSIUM 50 MG TABLET PO SCH (09:57)
[2022-06-11] MEDS: NICOTINE 10 MG CARTRIDGE (INHALER) IH PRN ×3 (10:56→21:32)
[2022-06-11] MEDS: hydrOXYzine PAMOATE 25 MG CAPSULE (FP) PO PRN ×3 (14:08→21:33)
[2022-06-11] MEDS: MELATONIN 5 MG TABLETS PO SCH (21:32)
[2022-06-11] MEDS: THIAMINE HCL 100 MG TABLET (FP) PO SCH (21:33)
[2022-06-11] MEDS: ATORVASTATIN CA 40 MG TABLET (FP) PO SCH (21:33)
[2022-06-11] MEDS: traZODone HCL 100 MG TABLET (FP) PO SCH (21:33)
[2022-06-11] MEDS: OLANZapine 10 MG TABLET PO SCH (21:33)
[2022-06-11 22:39] VITALS: RESP 18
[2022-06-12] MEDS: LOSARTAN POTASSIUM 50 MG TABLET PO SCH (10:00)
[2022-06-12] MEDS: clonazePAM 0.5 MG ODT TABLETS SL SCH ×2 (10:00→21:17)
[2022-06-12] MEDS: amLODIPine BESYLATE 10 MG TABLET (FP) PO SCH (10:00)
[2022-06-12] MEDS: BENZTROPINE MESYLATE 1 MG TABLET PO SCH ×2 (10:00→21:17)
[2022-06-12] MEDS: PRENATAL VITAMINS W/ FOLIC ACID TABLET (FP) PO SCH (10:01)
[2022-06-12] MEDS: BUDESONIDE/FORMETEROL FUMARATE 160/4.5 mcg INHALER IH SCH ×2 (10:01→21:17)
[2022-06-12] MEDS: NICOTINE 7 MG/24 HOURS TOPICAL PATCH TD SCH (10:01)
[2022-06-12] MEDS: NICOTINE 10 MG CARTRIDGE (INHALER) IH PRN ×3 (12:22→21:56)
[2022-06-12] MEDS: hydrOXYzine PAMOATE 25 MG CAPSULE (FP) PO PRN ×2 (16:16→21:17)
[2022-06-12] MEDS: THIAMINE HCL 100 MG TABLET (FP) PO SCH (21:17)
[2022-06-12] MEDS: traZODone HCL 100 MG TABLET (FP) PO SCH (21:17)
[2022-06-12] MEDS: OLANZapine 10 MG TABLET PO SCH (21:17)
[2022-06-12] MEDS: ATORVASTATIN CA 40 MG TABLET (FP) PO SCH (21:17)
[2022-06-12] MEDS: MELATONIN 5 MG TABLETS PO SCH (21:18)
[2022-06-13] MEDS: LOSARTAN POTASSIUM 50 MG TABLET PO SCH (10:02)
[2022-06-13] MEDS: clonazePAM 0.5 MG ODT TABLETS SL SCH ×2 (10:02→21:19)
[2022-06-13] MEDS: PRENATAL VITAMINS W/ FOLIC ACID TABLET (FP) PO SCH (10:02)
[2022-06-13] MEDS: BENZTROPINE MESYLATE 1 MG TABLET PO SCH ×2 (10:02→21:18)
[2022-06-13] MEDS: amLODIPine BESYLATE 10 MG TABLET (FP) PO SCH (10:02)
[2022-06-13] MEDS: ACETAMINOPHEN 325 MG TABLET (FP) PO PRN (10:03)
[2022-06-13] MEDS: BUDESONIDE/FORMETEROL FUMARATE 160/4.5 mcg INHALER IH SCH ×2 (10:05→21:18)
[2022-06-13] MEDS: NICOTINE 7 MG/24 HOURS TOPICAL PATCH TD SCH (10:13)
[2022-06-13] MEDS: NICOTINE 10 MG CARTRIDGE (INHALER) IH PRN ×3 (10:50→21:20)
[2022-06-13] MEDS: hydrOXYzine PAMOATE 25 MG CAPSULE (FP) PO PRN ×2 (15:11→21:19)
[2022-06-13] MEDS: traZODone HCL 100 MG TABLET (FP) PO SCH (21:18)
[2022-06-13] MEDS: MELATONIN 5 MG TABLETS PO SCH (21:18)
[2022-06-13] MEDS: ATORVASTATIN CA 40 MG TABLET (FP) PO SCH (21:18)
[2022-06-13] MEDS: OLANZapine 10 MG TABLET PO SCH (21:18)
[2022-06-13] MEDS: THIAMINE HCL 100 MG TABLET (FP) PO SCH (21:18)
[2022-06-14] MEDS: NICOTINE 10 MG CARTRIDGE (INHALER) IH PRN (06:59)
[2022-06-14] MEDS: hydrOXYzine PAMOATE 25 MG CAPSULE (FP) PO PRN (07:13)
[2022-06-14 08:09] VITALS: TEMP 98
[2022-06-14] MEDS: PRENATAL VITAMINS W/ FOLIC ACID TABLET (FP) PO SCH (10:22)
[2022-06-14] MEDS: LOSARTAN POTASSIUM 50 MG TABLET PO SCH (10:22)
[2022-06-14] MEDS: amLODIPine BESYLATE 10 MG TABLET (FP) PO SCH (10:23)
[2022-06-14] MEDS: BENZTROPINE MESYLATE 1 MG TABLET PO SCH (10:23)
[2022-06-14] MEDS: clonazePAM 0.5 MG ODT TABLETS SL SCH (10:23)
[2022-06-14] MEDS: NICOTINE 7 MG/24 HOURS TOPICAL PATCH TD SCH (10:36)
[2022-06-14] MEDS: BUDESONIDE/FORMETEROL FUMARATE 160/4.5 mcg INHALER IH SCH (10:47)
[2022-06-14 10:57] VITALS: BP 169/125; PULSE 73
== END 2022-06-14 11:05 | disposition home or self-care (01) | DRG 772 ==
LOC: YASAS 15:32 → Y5N 15:33
PROVIDERS: ADMIT Allergy & Immunology; ATTEND Psychiatry & Neurology Pain Medicine
PROC: HZ42ZZZ Group Counseling for Substance Abuse Treatment, Cognitive-Behavioral (ICD-10-PCS; principal; 2022-05-23)
DX: F10.20 Alcohol dependence, uncomplicated (principal); F14.20 Cocaine dependence, uncomplicated; F12.20 Cannabis dependence, uncomplicated; F17.210 Nicotine dependence, cigarettes, uncomplicated; J45.20 Mild intermittent asthma, uncomplicated; G40.909 Epilepsy, unspecified, not intractable, without status epilepticus; I69.354 Hemiplegia and hemiparesis following cerebral infarction affecting left non-dominant side; G24.01 Drug induced subacute dyskinesia; Z86.69 Personal history of other diseases of the nervous system and sense organs
CPT/HCPCS: J0735

== ENCOUNTER 2022-08-07 20:43 | Inpatient (IN) | payer OTHER ==
[2022-08-07 21:13] VITALS: BMI 23.5
[2022-08-07] MEDS ORDERED: LOPERAMIDE HCL 2 MG CAPSULE PO PRN (21:44)
[2022-08-07] MEDS ORDERED: ONDANSETRON *ODT* 4 MG TABLET SL PRN (21:44)
[2022-08-07] MEDS ORDERED: MELATONIN 5 MG TABLETS PO PRN (21:44)
[2022-08-07] MEDS ORDERED: MAGNESIUM HYDROX 2400MG/30ML ORAL SUSPENSION 30 ML CUP PO PRN (21:44)
[2022-08-07] MEDS ORDERED: P-EPHED 60MG/TRIPROLIDI 2.5MG TABLET PO PRN (21:44)
[2022-08-07] MEDS ORDERED: guaiFENesin 200 MG/10 ML 10 ML UNIT-DOSE CUPS PO PRN (21:44)
[2022-08-07] MEDS ORDERED: BENZOCAINE/MENTHOL (CHLORASEPTIC ) LOZENGE MM PRN (21:44)
[2022-08-07] MEDS ORDERED: BISMUTH SUBSALICYLATE 524 MG/30 ML PO PRN (21:44)
[2022-08-07] MEDS ORDERED: MAG HYDROX/AL HYDROX/SIMETH 30 ML UNIT-DOSE CUP PO PRN (21:44)
[2022-08-07] MEDS ORDERED: IBUPROFEN 400 MG TABLET (FP) PO PRN (21:44)
[2022-08-07] MEDS ORDERED: IBUPROFEN 600 MG TABLET (FP) PO PRN (21:44)
[2022-08-07] MEDS ORDERED: ACETAMINOPHEN 325 MG TABLET (FP) PO PRN ×2 (21:44)
[2022-08-07] MEDS ORDERED: MAGNESIUM CITRATE 300 ML BOTTLE PO PRN (21:44)
[2022-08-07] MEDS ORDERED: DICYCLOMINE HCL 10 MG CAPSULE PO PRN (21:44)
[2022-08-07] MEDS ORDERED: diazePAM 5 MG TABLET PO PRN (21:47)
[2022-08-07] MEDS: THIAMINE HCL 100 MG TABLET (FP) PO SCH (22:47)
[2022-08-07] MEDS: ATORVASTATIN CA 40 MG TABLET (FP) PO SCH (22:47)
[2022-08-07] MEDS ORDERED: traZODone HCL 50 MG TABLET (FP) PO ONE (23:38)
[2022-08-08] MEDS: amLODIPine BESYLATE 5 MG TABLET (FP) PO SCH (10:10)
[2022-08-08] MEDS: PRENATAL VITAMINS W/ FOLIC ACID TABLET (FP) PO SCH (10:10)
[2022-08-08] MEDS: BUDESONIDE/FORMETEROL FUMARATE 160/4.5 mcg INHALER IH SCH ×2 (10:10→21:59)
[2022-08-08] MEDS: chlordiazePOXIDE HCL 25 MG CAPSULE PO SCH ×3 (10:12→22:00)
[2022-08-08 10:42] LABS: HEMATOCRIT 35.7 % (35.4-49); HEMOGLOBIN 12.1 GM/dL (11.7-16.9); MCH 29.2 pg (25.7-33.7); MCHC 33.9 g/dl (32.0-35.9); MEAN PLT VOLUME 7.6 fl (7.5-11.1); PLATELET COUNT 219 10^3/uL (134-434); RBC 4.16 M/mm3 (4.00-5.60); RDW 13.5 % (11.9-15.9); WHITE BLOOD COUNT 2.4 K/mm3 (4.0-10.0)
[2022-08-08 10:50] LABS: ALBUMIN 3.7 g/dl (3.4-5.0); CALCIUM 9.2 mg/dL (8.5-10.1)
[2022-08-08 10:51] LABS: BILIRUBIN,TOTAL 0.4 mg/dL (0.2-1); TOT PROT 6.5 g/dl (6.4-8.2)
[2022-08-08 10:52] LABS: CREATININE 0.8 mg/dL (0.55-1.3)
[2022-08-08] MEDS ORDERED: FLU VACC QS2022-23(6MOS UP)/PF 60 MCG/0.5 ML SYRINGE IM ONE (12:00)
[2022-08-08] MEDS: OLANZapine 5 MG TABLET PO SCH ×2 (12:12→21:59)
[2022-08-08] MEDS: FOLIC ACID 1 MG TABLET (FP) PO SCH (12:12)
[2022-08-08] MEDS: BENZTROPINE MESYLATE 1 MG TABLET PO SCH ×2 (12:12→21:59)
[2022-08-08] MEDS: chlordiazePOXIDE HCL 25 MG CAPSULE PO PRN ×2 (14:23→22:00)
[2022-08-08] MEDS: traZODone HCL 100 MG TABLET (FP) PO SCH (21:58)
[2022-08-08] MEDS: ATORVASTATIN CA 40 MG TABLET (FP) PO SCH (21:59)
[2022-08-08] MEDS: THIAMINE HCL 100 MG TABLET (FP) PO SCH (21:59)
[2022-08-09] MEDS: hydrOXYzine PAMOATE 25 MG CAPSULE (FP) PO PRN (05:26)
[2022-08-09] MEDS: chlordiazePOXIDE HCL 25 MG CAPSULE PO SCH ×4 (05:26→22:15)
[2022-08-09] MEDS: FOLIC ACID 1 MG TABLET (FP) PO SCH (10:06)
[2022-08-09] MEDS: PRENATAL VITAMINS W/ FOLIC ACID TABLET (FP) PO SCH (10:06)
[2022-08-09] MEDS: amLODIPine BESYLATE 5 MG TABLET (FP) PO SCH (10:06)
[2022-08-09] MEDS: BENZTROPINE MESYLATE 1 MG TABLET PO SCH ×2 (10:06→22:14)
[2022-08-09] MEDS: METHOCARBAMOL 500 MG TABLET PO PRN (10:06)
[2022-08-09] MEDS: OLANZapine 5 MG TABLET PO SCH ×2 (10:07→22:14)
[2022-08-09] MEDS: BUDESONIDE/FORMETEROL FUMARATE 160/4.5 mcg INHALER IH SCH ×2 (10:07→23:54)
[2022-08-09] MEDS: chlordiazePOXIDE HCL 25 MG CAPSULE PO PRN (14:31)
[2022-08-09] MEDS: THIAMINE HCL 100 MG TABLET (FP) PO SCH (22:14)
[2022-08-09] MEDS: ATORVASTATIN CA 40 MG TABLET (FP) PO SCH (22:14)
[2022-08-09] MEDS: traZODone HCL 100 MG TABLET (FP) PO SCH (22:14)
[2022-08-10] MEDS: chlordiazePOXIDE HCL 25 MG CAPSULE PO SCH ×4 (05:22→22:08)
[2022-08-10] MEDS: hydrOXYzine PAMOATE 25 MG CAPSULE (FP) PO PRN ×2 (10:40→13:05)
[2022-08-10] MEDS: METHOCARBAMOL 500 MG TABLET PO PRN (10:40)
[2022-08-10] MEDS: BENZTROPINE MESYLATE 1 MG TABLET PO SCH ×2 (10:40→22:04)
[2022-08-10] MEDS: amLODIPine BESYLATE 5 MG TABLET (FP) PO SCH (10:40)
[2022-08-10] MEDS: OLANZapine 5 MG TABLET PO SCH ×2 (10:40→22:04)
[2022-08-10] MEDS: PRENATAL VITAMINS W/ FOLIC ACID TABLET (FP) PO SCH (10:40)
[2022-08-10] MEDS: BUDESONIDE/FORMETEROL FUMARATE 160/4.5 mcg INHALER IH SCH ×2 (10:40→22:09)
[2022-08-10] MEDS: FOLIC ACID 1 MG TABLET (FP) PO SCH (11:25)
[2022-08-10 12:26] LABS: HEMOGLOBIN 12.4 GM/dL (11.7-16.9); MCH 29.8 pg (25.7-33.7); MCHC 34.4 g/dl (32.0-35.9); MEAN CELL VOLUME 86.6 fl (80-96); MEAN PLT VOLUME 7.2 fl (7.5-11.1); PLATELET COUNT 215 10^3/uL (134-434); RBC 4.16 M/mm3 (4.00-5.60); RDW 13.8 % (11.9-15.9); WHITE BLOOD COUNT 2.9 K/mm3 (4.0-10.0)
[2022-08-10 12:56] LABS: BLOOD UREA NITROGEN 12.7 mg/dL (7-18)
[2022-08-10] MEDS: chlordiazePOXIDE HCL 25 MG CAPSULE PO PRN (13:05)
[2022-08-10] MEDS ORDERED: NICOTINE 10 MG CARTRIDGE (INHALER) IH PRN (18:27)
[2022-08-10] MEDS: ATORVASTATIN CA 40 MG TABLET (FP) PO SCH (22:03)
[2022-08-10] MEDS: traZODone HCL 100 MG TABLET (FP) PO SCH (22:04)
[2022-08-10] MEDS: THIAMINE HCL 100 MG TABLET (FP) PO SCH (22:04)
[2022-08-11] MEDS ORDERED: chlordiazePOXIDE HCL 10 MG CAPSULE PO PRN
[2022-08-11] MEDS: chlordiazePOXIDE HCL 10 MG CAPSULE PO SCH ×4 (05:33→22:54)
[2022-08-11] MEDS: METHOCARBAMOL 500 MG TABLET PO PRN (10:30)
[2022-08-11] MEDS: amLODIPine BESYLATE 5 MG TABLET (FP) PO SCH (10:30)
[2022-08-11] MEDS: PRENATAL VITAMINS W/ FOLIC ACID TABLET (FP) PO SCH (10:30)
[2022-08-11] MEDS: hydrOXYzine PAMOATE 25 MG CAPSULE (FP) PO PRN (10:30)
[2022-08-11] MEDS: FOLIC ACID 1 MG TABLET (FP) PO SCH (10:30)
[2022-08-11] MEDS: BENZTROPINE MESYLATE 1 MG TABLET PO SCH ×2 (10:30→22:53)
[2022-08-11] MEDS: OLANZapine 5 MG TABLET PO SCH ×2 (10:30→22:54)
[2022-08-11] MEDS: BUDESONIDE/FORMETEROL FUMARATE 160/4.5 mcg INHALER IH SCH ×2 (10:31→22:53)
[2022-08-11] MEDS ORDERED: NITROGLYCERIN SUBLINGUAL 1/150 0.4 MG TAB ONE ×2 (21:35→22:45)
[2022-08-11] MEDS: THIAMINE HCL 100 MG TABLET (FP) PO SCH (22:53)
[2022-08-11] MEDS: ATORVASTATIN CA 40 MG TABLET (FP) PO SCH (22:53)
[2022-08-11] MEDS: traZODone HCL 100 MG TABLET (FP) PO SCH (22:53)
[2022-08-12] MEDS: chlordiazePOXIDE HCL 10 MG CAPSULE PO SCH ×2 (05:14→17:30)
[2022-08-12] MEDS: PRENATAL VITAMINS W/ FOLIC ACID TABLET (FP) PO SCH (09:40)
[2022-08-12] MEDS: amLODIPine BESYLATE 5 MG TABLET (FP) PO SCH (09:41)
[2022-08-12] MEDS: METHOCARBAMOL 500 MG TABLET PO PRN ×2 (09:41→17:30)
[2022-08-12] MEDS: hydrOXYzine PAMOATE 25 MG CAPSULE (FP) PO PRN ×2 (09:41→17:30)
[2022-08-12] MEDS: BENZTROPINE MESYLATE 1 MG TABLET PO SCH ×2 (09:41→22:35)
[2022-08-12] MEDS: OLANZapine 5 MG TABLET PO SCH ×2 (09:42→22:35)
[2022-08-12] MEDS: FOLIC ACID 1 MG TABLET (FP) PO SCH (09:42)
[2022-08-12] MEDS: BUDESONIDE/FORMETEROL FUMARATE 160/4.5 mcg INHALER IH SCH ×2 (09:42→22:44)
[2022-08-12] MEDS: THIAMINE HCL 100 MG TABLET (FP) PO SCH (22:34)
[2022-08-12] MEDS: ATORVASTATIN CA 40 MG TABLET (FP) PO SCH (22:35)
[2022-08-12] MEDS: traZODone HCL 100 MG TABLET (FP) PO SCH (22:35)
[2022-08-13] MEDS ORDERED: chlordiazePOXIDE HCL 10 MG CAPSULE PO ONE (05:00)
[2022-08-13 09:58] VITALS: RESP 16
[2022-08-13 10:28] VITALS: BP 111/67; PULSE 95; TEMP 97.3
[2022-08-13] MEDS: BENZTROPINE MESYLATE 1 MG TABLET PO SCH (10:41)
[2022-08-13] MEDS: amLODIPine BESYLATE 5 MG TABLET (FP) PO SCH (10:41)
[2022-08-13] MEDS: PRENATAL VITAMINS W/ FOLIC ACID TABLET (FP) PO SCH (10:41)
[2022-08-13] MEDS: hydrOXYzine PAMOATE 25 MG CAPSULE (FP) PO PRN (10:41)
[2022-08-13] MEDS: OLANZapine 5 MG TABLET PO SCH (10:42)
[2022-08-13] MEDS: BUDESONIDE/FORMETEROL FUMARATE 160/4.5 mcg INHALER IH SCH (10:45)
[2022-08-13] MEDS: FOLIC ACID 1 MG TABLET (FP) PO SCH (11:21)
== END 2022-08-13 12:22 | disposition other institution (70) | DRG 774 ==
LOC: YASAS 20:43 → Y6N 22:08
PROVIDERS: ADMIT Allergy & Immunology; ATTEND Surgery
PROC: HZ2ZZZZ Detoxification Services for Substance Abuse Treatment (ICD-10-PCS; principal; 2022-08-08)
DX: F10.230 Alcohol dependence with withdrawal, uncomplicated (principal); F14.20 Cocaine dependence, uncomplicated; F12.20 Cannabis dependence, uncomplicated; F17.210 Nicotine dependence, cigarettes, uncomplicated; F25.1 Schizoaffective disorder, depressive type; F19.282 Other psychoactive substance dependence with psychoactive substance-induced sleep disorder; E78.5 Hyperlipidemia, unspecified; I10 Essential (primary) hypertension; J45.20 Mild intermittent asthma, uncomplicated; G24.01 Drug induced subacute dyskinesia; G24.9 Dystonia, unspecified; R07.9 Chest pain, unspecified; I69.854 Hemiplegia and hemiparesis following other cerebrovascular disease affecting left non-dominant side; I69.821 Dysphasia following other cerebrovascular disease
CPT/HCPCS: 36415; 80053; 82947; 82962; 84520; 85027; 86780; C9803-CS; G0008; Q2036; U0003; U0005

== ENCOUNTER 2022-08-11 22:16 | Emergency (ER) | payer OTHER ==
[2022-08-11 22:28] VITALS: BP 143/94; PULSE 85; RESP 18; TEMP 98.6; BMI 22.7
[2022-08-11] MEDS ORDERED: SODIUM CHLORIDE 1,000 ML IV SCH (23:00)
[2022-08-11] MEDS ORDERED: BENZTROPINE MESYLATE 2 MG/2 ML INJECTION NR ONE (23:26)
[2022-08-11 23:31] LABS: BASO % 0.5 % (0-2.0); EOS % 3.9 % (0-4.5); HEMATOCRIT 39.2 % (35.4-49); HEMOGLOBIN 13.4 GM/dL (11.7-16.9); LYMPH % 23.6 % (8-40); MCH 29.5 pg (25.7-33.7); MCHC 34.2 g/dl (32.0-35.9); MEAN CELL VOLUME 86.3 fl (80-96); MEAN PLT VOLUME 6.9 fl (7.5-11.1); MONO % 13.2 % (3.8-10.2); NEUT % 58.8 % (42.8-82.8); PLATELET COUNT 222 10^3/uL (134-434); RBC 4.54 M/mm3 (4.00-5.60); RDW 13.4 % (11.9-15.9); WHITE BLOOD COUNT 4.2 K/mm3 (4.0-10.0)
[2022-08-11 23:37] LABS: INR 1.14 (0.83-1.09); PROTHROMBIN TIME (PATIENT) 13.1 SEC (9.7-13.0)
[2022-08-11 23:40] LABS: ACTIVATED PTT 28.5 SECONDS (25.2-36.5)
[2022-08-11 23:51] LABS: ALBUMIN 3.6 g/dl (3.4-5.0)
[2022-08-11 23:52] LABS: BLOOD UREA NITROGEN 14.8 mg/dL (7-18)
[2022-08-11 23:55] LABS: CREATININE 0.8 mg/dL (0.55-1.3)
[2022-08-11 23:56] LABS: TOT PROT 6.9 g/dl (6.4-8.2)
[2022-08-11 23:58] LABS: BILIRUBIN,TOTAL 0.5 mg/dL (0.2-1)
[2022-08-12] MEDS ORDERED: BENZTROPINE MESYLATE 2 MG/2 ML INJECTION NR ONE (00:44)
== END 2022-08-12 01:11 | disposition home or self-care (01) ==
LOC: JER 22:16
DX: G24.9 Dystonia, unspecified (principal)
CPT/HCPCS: 36415; 70450-TC; 71045-TC-FY; 80053; 80061; 82550; 83036; 84484; 85025; 85610; 85730; 99285-25

== ENCOUNTER 2022-08-13 12:56 | Inpatient (IN) | payer OTHER ==
[2022-08-13] MEDS ORDERED: P-EPHED 60MG/TRIPROLIDI 2.5MG TABLET PO PRN (17:13)
[2022-08-13] MEDS ORDERED: MAGNESIUM CITRATE 300 ML BOTTLE PO PRN (17:13)
[2022-08-13] MEDS ORDERED: MAGNESIUM HYDROX 2400MG/30ML ORAL SUSPENSION 30 ML CUP PO PRN (17:13)
[2022-08-13] MEDS ORDERED: NICOTINE POLACRILEX 2 MG GUM BC PRN (17:13)
[2022-08-13] MEDS ORDERED: MAG HYDROX/AL HYDROX/SIMETH 30 ML UNIT-DOSE CUP PO PRN (17:13)
[2022-08-13] MEDS ORDERED: guaiFENesin 200 MG/10 ML 10 ML UNIT-DOSE CUPS PO PRN (17:13)
[2022-08-13] MEDS: NICOTINE 10 MG CARTRIDGE (INHALER) IH PRN (17:40)
[2022-08-13] MEDS: hydrOXYzine PAMOATE 25 MG CAPSULE (FP) PO SCH ×2 (17:41→21:11)
[2022-08-13] MEDS: IBUPROFEN 400 MG TABLET (FP) PO PRN (20:07)
[2022-08-13] MEDS: MELATONIN 5 MG TABLETS PO SCH (21:10)
[2022-08-13] MEDS: THIAMINE HCL 100 MG TABLET (FP) PO SCH (21:10)
[2022-08-13] MEDS: BUDESONIDE/FORMETEROL FUMARATE 160/4.5 mcg INHALER IH SCH (21:11)
[2022-08-13] MEDS: ATORVASTATIN CA 40 MG TABLET (FP) PO SCH (21:12)
[2022-08-13] MEDS ORDERED: PATIENT'S OWN MEDICATION (NON-FORMULARY) (Mometasone/Formoterol [Dulera 100 Mcg-5 Mcg Inha IH SCH (22:00)
[2022-08-13] MEDS ORDERED: BENZTROPINE MESYLATE 1 MG TABLET PO SCH (22:00)
[2022-08-14] MEDS: hydrOXYzine PAMOATE 25 MG CAPSULE (FP) PO SCH ×6 (06:03→21:51)
[2022-08-14] MEDS: FOLIC ACID 1 MG TABLET (FP) PO SCH (09:38)
[2022-08-14] MEDS: LOSARTAN POTASSIUM 25 MG TABLET PO SCH (09:38)
[2022-08-14] MEDS: amLODIPine BESYLATE 5 MG TABLET (FP) PO SCH (09:38)
[2022-08-14] MEDS: PRENATAL VITAMINS W/ FOLIC ACID TABLET (FP) PO SCH (09:39)
[2022-08-14] MEDS: BUDESONIDE/FORMETEROL FUMARATE 160/4.5 mcg INHALER IH SCH ×2 (09:39→21:51)
[2022-08-14] MEDS: NICOTINE 7 MG/24 HOURS TOPICAL PATCH TD SCH (09:39)
[2022-08-14] MEDS ORDERED: ONDANSETRON *ODT* 4 MG TABLET SL PRN (10:36)
[2022-08-14] MEDS: LOPERAMIDE HCL 2 MG CAPSULE PO PRN (11:06)
[2022-08-14] MEDS ORDERED: TRIMETHOBENZAMIDE HCL 200MG/2ML INJ IM ONE (11:07)
[2022-08-14 11:10] LABS: PH,URINE 5.5 (5.0-8.0); URINE APPEARANCE CLEAR; URINE BILIRUBIN NEGATIVE (NEGATIVE); URINE COLOR DK YELLOW; URINE GLUCOSE (UA) NEGATIVE (NEGATIVE); URINE KETONE NEGATIVE (NEGATIVE); URINE LEUK ESTERASE NEGATIVE (NEGATIVE); URINE NITRITE NEGATIVE (NEGATIVE); URINE PROTEIN TRACE (NEGATIVE)
[2022-08-14] MEDS ORDERED: PNEUMOC 20-VAL CONJ-DIP CRM/PF 0.5 ML SYRINGE IM ONE (12:00)
[2022-08-14] MEDS: ACETAMINOPHEN 325 MG TABLET (FP) PO PRN (13:45)
[2022-08-14] MEDS: OLANZapine 5 MG TABLET PO SCH ×2 (15:02→21:51)
[2022-08-14] MEDS: IBUPROFEN 400 MG TABLET (FP) PO PRN (19:10)
[2022-08-14] MEDS: THIAMINE HCL 100 MG TABLET (FP) PO SCH (21:51)
[2022-08-14] MEDS: ATORVASTATIN CA 40 MG TABLET (FP) PO SCH (21:51)
[2022-08-14] MEDS: MELATONIN 5 MG TABLETS PO SCH (21:52)
[2022-08-14] MEDS: NICOTINE 10 MG CARTRIDGE (INHALER) IH PRN (21:53)
[2022-08-15] MEDS: hydrOXYzine PAMOATE 25 MG CAPSULE (FP) PO SCH ×6 (07:07→21:54)
[2022-08-15] MEDS: amLODIPine BESYLATE 5 MG TABLET (FP) PO SCH (10:37)
[2022-08-15] MEDS: PRENATAL VITAMINS W/ FOLIC ACID TABLET (FP) PO SCH (10:37)
[2022-08-15] MEDS: BUDESONIDE/FORMETEROL FUMARATE 160/4.5 mcg INHALER IH SCH ×2 (10:37→21:54)
[2022-08-15] MEDS: LOSARTAN POTASSIUM 25 MG TABLET PO SCH (10:38)
[2022-08-15] MEDS: FOLIC ACID 1 MG TABLET (FP) PO SCH (10:38)
[2022-08-15] MEDS: NICOTINE 7 MG/24 HOURS TOPICAL PATCH TD SCH (10:38)
[2022-08-15] MEDS: OLANZapine 5 MG TABLET PO SCH ×2 (10:39→21:54)
[2022-08-15] MEDS: NICOTINE 10 MG CARTRIDGE (INHALER) IH PRN (15:21)
[2022-08-15] MEDS: THIAMINE HCL 100 MG TABLET (FP) PO SCH (21:54)
[2022-08-15] MEDS: ATORVASTATIN CA 40 MG TABLET (FP) PO SCH (21:54)
[2022-08-15] MEDS: MELATONIN 5 MG TABLETS PO SCH (21:54)
[2022-08-16] MEDS: hydrOXYzine PAMOATE 25 MG CAPSULE (FP) PO SCH ×5 (06:47→21:44)
[2022-08-16] MEDS: PRENATAL VITAMINS W/ FOLIC ACID TABLET (FP) PO SCH (10:16)
[2022-08-16] MEDS: LOSARTAN POTASSIUM 25 MG TABLET PO SCH (10:16)
[2022-08-16] MEDS: amLODIPine BESYLATE 5 MG TABLET (FP) PO SCH (10:16)
[2022-08-16] MEDS: BUDESONIDE/FORMETEROL FUMARATE 160/4.5 mcg INHALER IH SCH ×2 (10:16→21:45)
[2022-08-16] MEDS: FOLIC ACID 1 MG TABLET (FP) PO SCH (10:17)
[2022-08-16] MEDS: OLANZapine 5 MG TABLET PO SCH ×2 (10:18→21:44)
[2022-08-16] MEDS: NICOTINE 7 MG/24 HOURS TOPICAL PATCH TD SCH (10:18)
[2022-08-16] MEDS: LOPERAMIDE HCL 2 MG CAPSULE PO PRN (14:21)
[2022-08-16] MEDS: ATORVASTATIN CA 40 MG TABLET (FP) PO SCH (21:44)
[2022-08-16] MEDS: THIAMINE HCL 100 MG TABLET (FP) PO SCH (21:44)
[2022-08-16] MEDS: MELATONIN 5 MG TABLETS PO SCH (21:44)
[2022-08-17] MEDS: hydrOXYzine PAMOATE 25 MG CAPSULE (FP) PO SCH ×7 (06:16→22:01)
[2022-08-17] MEDS: PRENATAL VITAMINS W/ FOLIC ACID TABLET (FP) PO SCH (10:13)
[2022-08-17] MEDS: LOSARTAN POTASSIUM 25 MG TABLET PO SCH (10:13)
[2022-08-17] MEDS: FOLIC ACID 1 MG TABLET (FP) PO SCH (10:14)
[2022-08-17] MEDS: BUDESONIDE/FORMETEROL FUMARATE 160/4.5 mcg INHALER IH SCH ×2 (10:14→21:54)
[2022-08-17] MEDS: OLANZapine 5 MG TABLET PO SCH ×2 (10:14→21:55)
[2022-08-17] MEDS: NICOTINE 7 MG/24 HOURS TOPICAL PATCH TD SCH (10:14)
[2022-08-17] MEDS: amLODIPine BESYLATE 5 MG TABLET (FP) PO SCH (10:14)
[2022-08-17] MEDS: THIAMINE HCL 100 MG TABLET (FP) PO SCH (21:53)
[2022-08-17] MEDS: ATORVASTATIN CA 40 MG TABLET (FP) PO SCH (21:53)
[2022-08-17] MEDS: MELATONIN 5 MG TABLETS PO SCH (21:53)
[2022-08-18] MEDS: hydrOXYzine PAMOATE 25 MG CAPSULE (FP) PO SCH ×5 (06:45→22:18)
[2022-08-18] MEDS: FOLIC ACID 1 MG TABLET (FP) PO SCH (10:25)
[2022-08-18] MEDS: PRENATAL VITAMINS W/ FOLIC ACID TABLET (FP) PO SCH (10:25)
[2022-08-18] MEDS: BUDESONIDE/FORMETEROL FUMARATE 160/4.5 mcg INHALER IH SCH ×2 (10:25→22:30)
[2022-08-18] MEDS: LOSARTAN POTASSIUM 25 MG TABLET PO SCH (10:25)
[2022-08-18] MEDS: amLODIPine BESYLATE 5 MG TABLET (FP) PO SCH (10:25)
[2022-08-18] MEDS: NICOTINE 7 MG/24 HOURS TOPICAL PATCH TD SCH (10:26)
[2022-08-18] MEDS: OLANZapine 5 MG TABLET PO SCH ×2 (10:26→22:18)
[2022-08-18] MEDS: THIAMINE HCL 100 MG TABLET (FP) PO SCH (22:18)
[2022-08-18] MEDS: MELATONIN 5 MG TABLETS PO SCH (22:18)
[2022-08-18] MEDS: ATORVASTATIN CA 40 MG TABLET (FP) PO SCH (22:18)
[2022-08-18] MEDS: NICOTINE 10 MG CARTRIDGE (INHALER) IH PRN (22:19)
[2022-08-19] MEDS: hydrOXYzine PAMOATE 25 MG CAPSULE (FP) PO SCH ×6 (06:17→21:20)
[2022-08-19] MEDS: amLODIPine BESYLATE 5 MG TABLET (FP) PO SCH (09:43)
[2022-08-19] MEDS: PRENATAL VITAMINS W/ FOLIC ACID TABLET (FP) PO SCH (09:43)
[2022-08-19] MEDS: NICOTINE 7 MG/24 HOURS TOPICAL PATCH TD SCH (09:44)
[2022-08-19] MEDS: BUDESONIDE/FORMETEROL FUMARATE 160/4.5 mcg INHALER IH SCH ×2 (09:44→21:20)
[2022-08-19] MEDS: FOLIC ACID 1 MG TABLET (FP) PO SCH (09:44)
[2022-08-19] MEDS: LOSARTAN POTASSIUM 25 MG TABLET PO SCH (09:44)
[2022-08-19] MEDS: OLANZapine 5 MG TABLET PO SCH ×2 (09:45→21:20)
[2022-08-19] MEDS: ATORVASTATIN CA 40 MG TABLET (FP) PO SCH (21:20)
[2022-08-19] MEDS: THIAMINE HCL 100 MG TABLET (FP) PO SCH (21:20)
[2022-08-19] MEDS: ACETAMINOPHEN 325 MG TABLET (FP) PO PRN (21:20)
[2022-08-19] MEDS: MELATONIN 5 MG TABLETS PO SCH (21:22)
[2022-08-20] MEDS: ACETAMINOPHEN 325 MG TABLET (FP) PO PRN ×2 (02:49→19:16)
[2022-08-20] MEDS: hydrOXYzine PAMOATE 25 MG CAPSULE (FP) PO SCH ×2 (05:38→10:36)
[2022-08-20] MEDS: NICOTINE 7 MG/24 HOURS TOPICAL PATCH TD SCH (10:21)
[2022-08-20] MEDS: FOLIC ACID 1 MG TABLET (FP) PO SCH (10:21)
[2022-08-20] MEDS: LOSARTAN POTASSIUM 25 MG TABLET PO SCH (10:21)
[2022-08-20] MEDS: amLODIPine BESYLATE 5 MG TABLET (FP) PO SCH (10:21)
[2022-08-20] MEDS: OLANZapine 5 MG TABLET PO SCH ×2 (10:21→21:36)
[2022-08-20] MEDS: BUDESONIDE/FORMETEROL FUMARATE 160/4.5 mcg INHALER IH SCH ×2 (10:21→22:08)
[2022-08-20] MEDS: PRENATAL VITAMINS W/ FOLIC ACID TABLET (FP) PO SCH (10:21)
[2022-08-20] MEDS: hydrOXYzine PAMOATE 25 MG CAPSULE (FP) PO PRN ×2 (14:40→19:24)
[2022-08-20] MEDS: ATORVASTATIN CA 40 MG TABLET (FP) PO SCH (21:36)
[2022-08-20] MEDS: MELATONIN 5 MG TABLETS PO SCH (21:36)
[2022-08-20] MEDS: THIAMINE HCL 100 MG TABLET (FP) PO SCH (21:36)
[2022-08-21] MEDS: hydrOXYzine PAMOATE 25 MG CAPSULE (FP) PO PRN ×2 (06:21→16:08)
[2022-08-21] MEDS: OLANZapine 5 MG TABLET PO SCH ×2 (10:06→22:19)
[2022-08-21] MEDS: amLODIPine BESYLATE 5 MG TABLET (FP) PO SCH (10:06)
[2022-08-21] MEDS: PRENATAL VITAMINS W/ FOLIC ACID TABLET (FP) PO SCH (10:06)
[2022-08-21] MEDS: LOSARTAN POTASSIUM 25 MG TABLET PO SCH (10:06)
[2022-08-21] MEDS: NICOTINE 7 MG/24 HOURS TOPICAL PATCH TD SCH (10:06)
[2022-08-21] MEDS: BUDESONIDE/FORMETEROL FUMARATE 160/4.5 mcg INHALER IH SCH ×2 (10:07→23:13)
[2022-08-21] MEDS: FOLIC ACID 1 MG TABLET (FP) PO SCH (10:08)
[2022-08-21] MEDS: ACETAMINOPHEN 325 MG TABLET (FP) PO PRN (19:26)
[2022-08-21] MEDS ORDERED: ASPIRIN COATED 81 MG TABLET.EC PO ONE (19:43)
[2022-08-21] MEDS ORDERED: cloNIDine HCL 0.1 MG TABLET PO ONE (19:43)
[2022-08-21] MEDS: THIAMINE HCL 100 MG TABLET (FP) PO SCH (22:19)
[2022-08-21] MEDS: MELATONIN 5 MG TABLETS PO SCH (22:19)
[2022-08-21] MEDS: ATORVASTATIN CA 40 MG TABLET (FP) PO SCH (22:19)
[2022-08-22] MEDS: hydrOXYzine PAMOATE 25 MG CAPSULE (FP) PO PRN ×4 (06:29→21:50)
[2022-08-22] MEDS: amLODIPine BESYLATE 5 MG TABLET (FP) PO SCH ×2 (06:30→10:35)
[2022-08-22 08:10] VITALS: RESP 18
[2022-08-22] MEDS ORDERED: ASPIRIN COATED 81 MG TABLET.EC PO SCH (10:00)
[2022-08-22] MEDS: BUDESONIDE/FORMETEROL FUMARATE 160/4.5 mcg INHALER IH SCH ×2 (10:32→21:58)
[2022-08-22] MEDS: LOSARTAN POTASSIUM 25 MG TABLET PO SCH (10:32)
[2022-08-22] MEDS: PRENATAL VITAMINS W/ FOLIC ACID TABLET (FP) PO SCH (10:32)
[2022-08-22] MEDS: FOLIC ACID 1 MG TABLET (FP) PO SCH (10:33)
[2022-08-22] MEDS: OLANZapine 5 MG TABLET PO SCH ×2 (10:34→21:50)
[2022-08-22] MEDS: NICOTINE 10 MG CARTRIDGE (INHALER) IH PRN (12:52)
[2022-08-22] MEDS: ACETAMINOPHEN 325 MG TABLET (FP) PO PRN (12:52)
[2022-08-22] MEDS: IBUPROFEN 400 MG TABLET (FP) PO PRN (18:19)
[2022-08-22] MEDS ORDERED: BENZTROPINE MESYLATE 1 MG TABLET PO ONE (18:19)
[2022-08-22] MEDS: ATORVASTATIN CA 40 MG TABLET (FP) PO SCH (21:49)
[2022-08-22] MEDS: THIAMINE HCL 100 MG TABLET (FP) PO SCH (21:50)
[2022-08-22] MEDS: MELATONIN 5 MG TABLETS PO SCH (21:58)
[2022-08-22] MEDS ORDERED: BENZTROPINE MESYLATE 0.5 MG TABLET (FP) PO SCH (22:00)
[2022-08-23 01:31] VITALS: BP 142/83; PULSE 63; TEMP 97.6
== END 2022-08-23 07:00 | disposition short-term general hospital (02) | DRG 772 ==
LOC: YASAS 12:56 → Y5N 12:59
PROVIDERS: ADMIT Allergy & Immunology; ATTEND Psychiatry & Neurology Pain Medicine
PROC: HZ42ZZZ Group Counseling for Substance Abuse Treatment, Cognitive-Behavioral (ICD-10-PCS; principal; 2022-08-13)
DX: F10.20 Alcohol dependence, uncomplicated (principal); F14.20 Cocaine dependence, uncomplicated; F17.210 Nicotine dependence, cigarettes, uncomplicated; F31.9 Bipolar disorder, unspecified; F20.9 Schizophrenia, unspecified; G24.01 Drug induced subacute dyskinesia; I10 Essential (primary) hypertension; J45.909 Unspecified asthma, uncomplicated; R26.89 Other abnormalities of gait and mobility; Z86.73 Personal history of transient ischemic attack (TIA), and cerebral infarction without residual deficits; Z91.013 Allergy to seafood; Z91.014 Allergy to mammalian meats
CPT/HCPCS: 36415; 81003; 84484; 86803; 93005; 93010

== ENCOUNTER 2022-08-23 09:36 | Inpatient (IN) | payer OTHER ==
[2022-08-23 10:13] VITALS: BMI 23.5
[2022-08-23] MEDS ORDERED: IBUPROFEN 400 MG TABLET (FP) PO PRN (10:29)
[2022-08-23] MEDS ORDERED: P-EPHED 60MG/TRIPROLIDI 2.5MG TABLET PO PRN (10:29)
[2022-08-23] MEDS ORDERED: LOPERAMIDE HCL 2 MG CAPSULE PO PRN (10:29)
[2022-08-23] MEDS ORDERED: MAG HYDROX/AL HYDROX/SIMETH 30 ML UNIT-DOSE CUP PO PRN (10:29)
[2022-08-23] MEDS ORDERED: guaiFENesin 200 MG/10 ML 10 ML UNIT-DOSE CUPS PO PRN (10:29)
[2022-08-23] MEDS ORDERED: MAGNESIUM CITRATE 300 ML BOTTLE PO PRN (10:29)
[2022-08-23] MEDS ORDERED: MAGNESIUM HYDROX 2400MG/30ML ORAL SUSPENSION 30 ML CUP PO PRN (10:29)
[2022-08-23] MEDS ORDERED: LOSARTAN POTASSIUM 25 MG TABLET PO SCH (11:10)
[2022-08-23] MEDS ORDERED: amLODIPine BESYLATE 5 MG TABLET (FP) PO SCH (11:10)
[2022-08-23] MEDS: PRENATAL VITAMINS W/ FOLIC ACID TABLET (FP) PO SCH (11:10)
[2022-08-23] MEDS: NICOTINE 7 MG/24 HOURS TOPICAL PATCH TD SCH (11:11)
[2022-08-23] MEDS: NICOTINE 10 MG CARTRIDGE (INHALER) IH PRN ×2 (11:13→18:19)
[2022-08-23] MEDS: BENZTROPINE MESYLATE 1 MG TABLET PO SCH ×2 (11:57→21:27)
[2022-08-23] MEDS: OLANZapine 5 MG TABLET PO SCH ×2 (11:57→21:26)
[2022-08-23] MEDS: hydrOXYzine PAMOATE 25 MG CAPSULE (FP) PO PRN ×2 (11:58→21:26)
[2022-08-23] MEDS: LOSARTAN POTASSIUM 25 MG TABLET PO SCH (12:02)
[2022-08-23] MEDS: amLODIPine BESYLATE 5 MG TABLET (FP) PO SCH (12:02)
[2022-08-23] MEDS ORDERED: hydrOXYzine PAMOATE 25 MG CAPSULE (FP) PO SCH (14:00)
[2022-08-23] MEDS: ACETAMINOPHEN 325 MG TABLET (FP) PO PRN (18:18)
[2022-08-23] MEDS: THIAMINE HCL 100 MG TABLET (FP) PO SCH (21:26)
[2022-08-23] MEDS: BUDESONIDE/FORMETEROL FUMARATE 160/4.5 mcg INHALER IH SCH (21:26)
[2022-08-23] MEDS: MELATONIN 5 MG TABLETS PO SCH (21:27)
[2022-08-23] MEDS: ATORVASTATIN CA 40 MG TABLET (FP) PO SCH (21:28)
[2022-08-23] MEDS: traZODone HCL 100 MG TABLET (FP) PO SCH (21:28)
[2022-08-23] MEDS ORDERED: BUDESONIDE/FORMETEROL FUMARATE 160/4.5 mcg INHALER IH SCH (22:00)
[2022-08-24] MEDS: hydrOXYzine PAMOATE 25 MG CAPSULE (FP) PO PRN ×4 (06:30→21:26)
[2022-08-24] MEDS ORDERED: amLODIPine BESYLATE 5 MG TABLET (FP) PO SCH (10:00)
[2022-08-24] MEDS ORDERED: LOSARTAN POTASSIUM 25 MG TABLET PO SCH (10:00)
[2022-08-24] MEDS: BUDESONIDE/FORMETEROL FUMARATE 160/4.5 mcg INHALER IH SCH ×2 (10:44→21:27)
[2022-08-24] MEDS: PRENATAL VITAMINS W/ FOLIC ACID TABLET (FP) PO SCH (10:44)
[2022-08-24] MEDS: LOSARTAN POTASSIUM 25 MG TABLET PO SCH (10:44)
[2022-08-24] MEDS: OLANZapine 5 MG TABLET PO SCH ×2 (10:45→21:26)
[2022-08-24] MEDS: amLODIPine BESYLATE 5 MG TABLET (FP) PO SCH (10:46)
[2022-08-24] MEDS: BENZTROPINE MESYLATE 1 MG TABLET PO SCH ×2 (10:46→21:24)
[2022-08-24] MEDS: NICOTINE 7 MG/24 HOURS TOPICAL PATCH TD SCH (10:46)
[2022-08-24] MEDS: ACETAMINOPHEN 325 MG TABLET (FP) PO PRN (19:35)
[2022-08-24] MEDS: ATORVASTATIN CA 40 MG TABLET (FP) PO SCH (21:24)
[2022-08-24] MEDS: traZODone HCL 100 MG TABLET (FP) PO SCH (21:24)
[2022-08-24] MEDS: THIAMINE HCL 100 MG TABLET (FP) PO SCH (21:24)
[2022-08-24] MEDS: MELATONIN 5 MG TABLETS PO SCH (21:25)
[2022-08-25] MEDS: hydrOXYzine PAMOATE 25 MG CAPSULE (FP) PO PRN ×3 (06:27→17:41)
[2022-08-25] MEDS: NICOTINE 10 MG CARTRIDGE (INHALER) IH PRN ×2 (07:38→15:27)
[2022-08-25] MEDS: BENZTROPINE MESYLATE 1 MG TABLET PO SCH ×2 (09:59→21:54)
[2022-08-25] MEDS: PRENATAL VITAMINS W/ FOLIC ACID TABLET (FP) PO SCH (09:59)
[2022-08-25] MEDS: BUDESONIDE/FORMETEROL FUMARATE 160/4.5 mcg INHALER IH SCH ×2 (09:59→22:31)
[2022-08-25] MEDS: LOSARTAN POTASSIUM 25 MG TABLET PO SCH (09:59)
[2022-08-25] MEDS: NICOTINE 7 MG/24 HOURS TOPICAL PATCH TD SCH (09:59)
[2022-08-25] MEDS: amLODIPine BESYLATE 5 MG TABLET (FP) PO SCH (09:59)
[2022-08-25] MEDS: OLANZapine 5 MG TABLET PO SCH ×2 (10:00→21:55)
[2022-08-25] MEDS: ACETAMINOPHEN 325 MG TABLET (FP) PO PRN (17:41)
[2022-08-25] MEDS: traZODone HCL 100 MG TABLET (FP) PO SCH (21:54)
[2022-08-25] MEDS: THIAMINE HCL 100 MG TABLET (FP) PO SCH (21:55)
[2022-08-25] MEDS: MELATONIN 5 MG TABLETS PO SCH (21:55)
[2022-08-25] MEDS: ATORVASTATIN CA 40 MG TABLET (FP) PO SCH (21:55)
[2022-08-26] MEDS: hydrOXYzine PAMOATE 25 MG CAPSULE (FP) PO PRN ×3 (06:32→21:35)
[2022-08-26] MEDS: PRENATAL VITAMINS W/ FOLIC ACID TABLET (FP) PO SCH (09:59)
[2022-08-26] MEDS: BUDESONIDE/FORMETEROL FUMARATE 160/4.5 mcg INHALER IH SCH ×2 (09:59→21:36)
[2022-08-26] MEDS: NICOTINE 7 MG/24 HOURS TOPICAL PATCH TD SCH (10:00)
[2022-08-26] MEDS: amLODIPine BESYLATE 5 MG TABLET (FP) PO SCH (10:00)
[2022-08-26] MEDS: OLANZapine 5 MG TABLET PO SCH ×2 (10:00→21:35)
[2022-08-26] MEDS: LOSARTAN POTASSIUM 25 MG TABLET PO SCH (10:00)
[2022-08-26] MEDS: BENZTROPINE MESYLATE 1 MG TABLET PO SCH ×2 (10:00→21:35)
[2022-08-26] MEDS: NICOTINE 10 MG CARTRIDGE (INHALER) IH PRN ×2 (10:45→18:07)
[2022-08-26] MEDS: ACETAMINOPHEN 325 MG TABLET (FP) PO PRN (12:59)
[2022-08-26] MEDS: ATORVASTATIN CA 40 MG TABLET (FP) PO SCH (21:35)
[2022-08-26] MEDS: traZODone HCL 100 MG TABLET (FP) PO SCH (21:35)
[2022-08-26] MEDS: MELATONIN 5 MG TABLETS PO SCH (21:35)
[2022-08-26] MEDS: THIAMINE HCL 100 MG TABLET (FP) PO SCH (21:35)
[2022-08-27] MEDS: hydrOXYzine PAMOATE 25 MG CAPSULE (FP) PO PRN ×3 (05:57→18:10)
[2022-08-27] MEDS: LOSARTAN POTASSIUM 25 MG TABLET PO SCH ×2 (05:57→10:16)
[2022-08-27] MEDS: BUDESONIDE/FORMETEROL FUMARATE 160/4.5 mcg INHALER IH SCH ×2 (10:16→21:46)
[2022-08-27] MEDS: OLANZapine 5 MG TABLET PO SCH ×2 (10:16→21:46)
[2022-08-27] MEDS: BENZTROPINE MESYLATE 1 MG TABLET PO SCH ×2 (10:16→21:46)
[2022-08-27] MEDS: PRENATAL VITAMINS W/ FOLIC ACID TABLET (FP) PO SCH (10:16)
[2022-08-27] MEDS: amLODIPine BESYLATE 5 MG TABLET (FP) PO SCH (10:17)
[2022-08-27] MEDS: NICOTINE 7 MG/24 HOURS TOPICAL PATCH TD SCH (10:17)
[2022-08-27] MEDS: ACETAMINOPHEN 325 MG TABLET (FP) PO PRN (16:49)
[2022-08-27] MEDS: NICOTINE 10 MG CARTRIDGE (INHALER) IH PRN (18:26)
[2022-08-27] MEDS: THIAMINE HCL 100 MG TABLET (FP) PO SCH (21:46)
[2022-08-27] MEDS: ATORVASTATIN CA 40 MG TABLET (FP) PO SCH (21:46)
[2022-08-27] MEDS: MELATONIN 5 MG TABLETS PO SCH (21:47)
[2022-08-27] MEDS: traZODone HCL 100 MG TABLET (FP) PO SCH (21:47)
[2022-08-28] MEDS: hydrOXYzine PAMOATE 25 MG CAPSULE (FP) PO PRN ×3 (06:37→15:50)
[2022-08-28] MEDS: BENZTROPINE MESYLATE 1 MG TABLET PO SCH ×3 (07:30→21:36)
[2022-08-28] MEDS: amLODIPine BESYLATE 5 MG TABLET (FP) PO SCH ×2 (07:57→10:47)
[2022-08-28 08:15] VITALS: RESP 18
[2022-08-28] MEDS: LOSARTAN POTASSIUM 25 MG TABLET PO SCH (10:41)
[2022-08-28] MEDS: BUDESONIDE/FORMETEROL FUMARATE 160/4.5 mcg INHALER IH SCH ×2 (10:42→21:39)
[2022-08-28] MEDS: NICOTINE 7 MG/24 HOURS TOPICAL PATCH TD SCH (10:42)
[2022-08-28] MEDS: OLANZapine 5 MG TABLET PO SCH ×2 (10:45→21:36)
[2022-08-28] MEDS: PRENATAL VITAMINS W/ FOLIC ACID TABLET (FP) PO SCH (10:45)
[2022-08-28] MEDS: NICOTINE 10 MG CARTRIDGE (INHALER) IH PRN (13:42)
[2022-08-28] MEDS: diphenhydrAMINE HCL 25 MG CAPSULE (FP) PO PRN (16:59)
[2022-08-28] MEDS: ACETAMINOPHEN 325 MG TABLET (FP) PO PRN (18:45)
[2022-08-28] MEDS: ATORVASTATIN CA 40 MG TABLET (FP) PO SCH (21:36)
[2022-08-28] MEDS: traZODone HCL 100 MG TABLET (FP) PO SCH (21:36)
[2022-08-28] MEDS: MELATONIN 5 MG TABLETS PO SCH (21:36)
[2022-08-28] MEDS: THIAMINE HCL 100 MG TABLET (FP) PO SCH (21:36)
[2022-08-29] MEDS: diphenhydrAMINE HCL 25 MG CAPSULE (FP) PO PRN ×3 (06:59→18:09)
[2022-08-29] MEDS: BUDESONIDE/FORMETEROL FUMARATE 160/4.5 mcg INHALER IH SCH ×2 (09:59→21:50)
[2022-08-29] MEDS: BENZTROPINE MESYLATE 1 MG TABLET PO SCH ×2 (09:59→21:31)
[2022-08-29] MEDS: NICOTINE 7 MG/24 HOURS TOPICAL PATCH TD SCH (09:59)
[2022-08-29] MEDS: LOSARTAN POTASSIUM 25 MG TABLET PO SCH (09:59)
[2022-08-29] MEDS: amLODIPine BESYLATE 5 MG TABLET (FP) PO SCH (09:59)
[2022-08-29] MEDS: PRENATAL VITAMINS W/ FOLIC ACID TABLET (FP) PO SCH (09:59)
[2022-08-29] MEDS: OLANZapine 5 MG TABLET PO SCH ×2 (10:01→21:31)
[2022-08-29] MEDS: NICOTINE 10 MG CARTRIDGE (INHALER) IH PRN ×2 (12:53→19:10)
[2022-08-29] MEDS: THIAMINE HCL 100 MG TABLET (FP) PO SCH (21:31)
[2022-08-29] MEDS: ATORVASTATIN CA 40 MG TABLET (FP) PO SCH (21:31)
[2022-08-29] MEDS: ACETAMINOPHEN 325 MG TABLET (FP) PO PRN (21:31)
[2022-08-29] MEDS: traZODone HCL 100 MG TABLET (FP) PO SCH (21:31)
[2022-08-29] MEDS: MELATONIN 5 MG TABLETS PO SCH (21:50)
[2022-08-30] MEDS: diphenhydrAMINE HCL 25 MG CAPSULE (FP) PO PRN (05:53)
[2022-08-30 09:15] VITALS: BP 112/82; PULSE 89; TEMP 97.4
[2022-08-30] MEDS: amLODIPine BESYLATE 5 MG TABLET (FP) PO SCH (09:48)
[2022-08-30] MEDS: PRENATAL VITAMINS W/ FOLIC ACID TABLET (FP) PO SCH (09:49)
[2022-08-30] MEDS: BENZTROPINE MESYLATE 1 MG TABLET PO SCH (09:49)
[2022-08-30] MEDS: NICOTINE 7 MG/24 HOURS TOPICAL PATCH TD SCH (09:49)
[2022-08-30] MEDS: LOSARTAN POTASSIUM 25 MG TABLET PO SCH (09:49)
[2022-08-30] MEDS: BUDESONIDE/FORMETEROL FUMARATE 160/4.5 mcg INHALER IH SCH (09:49)
[2022-08-30] MEDS: OLANZapine 5 MG TABLET PO SCH (11:09)
[2022-08-30] MEDS ORDERED: diphenhydrAMINE HCL 25 MG CAPSULE (FP) PO PRN (14:00)
== END 2022-08-30 14:45 | disposition left against medical advice (07) | DRG 770 ==
LOC: YASAS 09:36 → Y5N 10:18
PROVIDERS: ADMIT Allergy & Immunology; ATTEND Psychiatry & Neurology Pain Medicine
PROC: HZ42ZZZ Group Counseling for Substance Abuse Treatment, Cognitive-Behavioral (ICD-10-PCS; principal; 2022-08-23)
DX: F10.20 Alcohol dependence, uncomplicated (principal); F14.20 Cocaine dependence, uncomplicated; F12.20 Cannabis dependence, uncomplicated; F17.210 Nicotine dependence, cigarettes, uncomplicated; F20.9 Schizophrenia, unspecified; I10 Essential (primary) hypertension; I69.854 Hemiplegia and hemiparesis following other cerebrovascular disease affecting left non-dominant side; J45.909 Unspecified asthma, uncomplicated; G47.00 Insomnia, unspecified; G24.01 Drug induced subacute dyskinesia; Z91.014 Allergy to mammalian meats; Z91.013 Allergy to seafood

== ENCOUNTER 2023-01-31 16:36 | Inpatient (IN) | payer OTHER ==
[2023-01-31 17:12] VITALS: BMI 23.3
[2023-01-31] MEDS ORDERED: BACLOFEN 10 MG TABLET (FP) PO PRN (18:50)
[2023-01-31] MEDS ORDERED: guaiFENesin 600 MG TABLET.ER (FP) PO PRN (18:50)
[2023-01-31] MEDS ORDERED: MELATONIN 5 MG TABLETS PO PRN (18:50)
[2023-01-31] MEDS ORDERED: MAG HYDROX/AL HYDROX/SIMETH 30 ML UNIT-DOSE CUP PO PRN (18:50)
[2023-01-31] MEDS ORDERED: BISMUTH SUBSALICYLATE 524 MG/30 ML PO PRN (18:50)
[2023-01-31] MEDS ORDERED: P-EPHED 60MG/TRIPROLIDI 2.5MG TABLET PO PRN (18:50)
[2023-01-31] MEDS ORDERED: DICYCLOMINE HCL 10 MG CAPSULE PO PRN (18:50)
[2023-01-31] MEDS ORDERED: BENZONATATE 200 MG CAPSULE PO PRN (18:50)
[2023-01-31] MEDS ORDERED: IBUPROFEN 600 MG TABLET (FP) PO PRN (18:50)
[2023-01-31] MEDS ORDERED: IBUPROFEN 400 MG TABLET (FP) PO PRN (18:50)
[2023-01-31] MEDS ORDERED: ONDANSETRON *ODT* 4 MG TABLET SL PRN (18:50)
[2023-01-31] MEDS ORDERED: MAGNESIUM HYDROX 2400MG/30ML ORAL SUSPENSION 30 ML CUP PO PRN (18:50)
[2023-01-31] MEDS ORDERED: POLYETHYLENE GLYCOL (HEALTHYLAX) 3350 17 GM PACKET PO PRN (18:50)
[2023-01-31] MEDS ORDERED: LOPERAMIDE HCL 2 MG CAPSULE PO PRN (18:50)
[2023-01-31] MEDS ORDERED: BENZOCAINE/MENTHOL (CHLORASEPTIC ) LOZENGE MM PRN (18:50)
[2023-01-31] MEDS ORDERED: hydrOXYzine PAMOATE 25 MG CAPSULE (FP) PO PRN (18:50)
[2023-01-31] MEDS ORDERED: diazePAM 5 MG TABLET PO PRN (18:52)
[2023-01-31] MEDS: amLODIPine BESYLATE 5 MG TABLET (FP) PO SCH (19:45)
[2023-01-31] MEDS ORDERED: diphenhydrAMINE HCL 25 MG CAPSULE (FP) PO ONE (22:00)
[2023-01-31] MEDS: THIAMINE HCL 100 MG TABLET (FP) PO SCH (22:28)
[2023-01-31] MEDS: BUDESONIDE/FORMETEROL FUMARATE 160/4.5 mcg INHALER IH SCH (22:29)
[2023-02-01] MEDS: ACETAMINOPHEN 325 MG TABLET (FP) PO PRN ×2 (07:49→20:06)
[2023-02-01] MEDS ORDERED: diphenhydrAMINE HCL 50 MG CAPSULE PO PRN (09:54)
[2023-02-01] MEDS ORDERED: BENZTROPINE MESYLATE 2 MG TABLET PO SCH (10:00)
[2023-02-01] MEDS ORDERED: PATIENT'S OWN MEDICATION (NON-FORMULARY) (Lisinopril/Hydrochlorothiazide [Lisinopril-Hctz PO SCH (10:00)
[2023-02-01] MEDS: PRENATAL VITAMINS W/ FOLIC ACID TABLET (FP) PO SCH (10:06)
[2023-02-01] MEDS: LISINOPRIL 20 MG TABLET PO SCH (10:06)
[2023-02-01] MEDS: HYDROCHLOROTHIAZIDE 12.5 MG CAPSULE (FP) PO SCH (10:06)
[2023-02-01] MEDS: BENZTROPINE MESYLATE 1 MG TABLET PO SCH ×2 (10:06→22:14)
[2023-02-01] MEDS: BUDESONIDE/FORMETEROL FUMARATE 160/4.5 mcg INHALER IH SCH ×2 (10:06→22:14)
[2023-02-01] MEDS: amLODIPine BESYLATE 5 MG TABLET (FP) PO SCH (10:06)
[2023-02-01] MEDS: SERTRALINE HCL 50 MG TABLET (FP) PO SCH (10:08)
[2023-02-01 10:49] LABS: HEMATOCRIT 38.2 % (35.4-49); HEMOGLOBIN 13.6 GM/dL (11.7-16.9); MCHC 35.7 g/dl (32.0-35.9); MEAN CELL VOLUME 84.1 fl (80-96); MEAN PLT VOLUME 8.1 fl (7.5-11.1); PLATELET COUNT 239 10^3/uL (134-434); RBC 4.54 M/mm3 (4.00-5.60); RDW 13.3 % (11.9-15.9)
[2023-02-01] MEDS: FOLIC ACID 1 MG TABLET (FP) PO SCH (10:49)
[2023-02-01 10:56] LABS: CALCIUM 8.7 mg/dL (8.5-10.1)
[2023-02-01 10:57] LABS: BLOOD UREA NITROGEN 16.6 mg/dL (7-18)
[2023-02-01 10:59] LABS: CREATININE 0.8 mg/dL (0.55-1.3)
[2023-02-01 11:01] LABS: BILIRUBIN,TOTAL 0.9 mg/dL (0.2-1); TOT PROT 7.3 g/dl (6.4-8.2)
[2023-02-01] MEDS ORDERED: chlordiazePOXIDE HCL 25 MG CAPSULE PO PRN (11:23)
[2023-02-01] MEDS: chlordiazePOXIDE HCL 25 MG CAPSULE PO SCH ×3 (12:24→22:15)
[2023-02-01] MEDS: AMANTADINE HCL 100 MG TABLET PO SCH ×2 (14:37→22:18)
[2023-02-01] MEDS: OLANZapine 10 MG TABLET PO SCH (22:14)
[2023-02-01] MEDS: traZODone HCL 100 MG TABLET (FP) PO SCH (22:14)
[2023-02-01] MEDS: THIAMINE HCL 100 MG TABLET (FP) PO SCH (22:14)
[2023-02-02] MEDS: chlordiazePOXIDE HCL 25 MG CAPSULE PO SCH ×4 (05:16→22:12)
[2023-02-02] MEDS: AMANTADINE HCL 100 MG TABLET PO SCH ×3 (05:17→22:13)
[2023-02-02] MEDS: BUDESONIDE/FORMETEROL FUMARATE 160/4.5 mcg INHALER IH SCH ×2 (10:23→22:11)
[2023-02-02] MEDS: PRENATAL VITAMINS W/ FOLIC ACID TABLET (FP) PO SCH (10:23)
[2023-02-02] MEDS: LISINOPRIL 20 MG TABLET PO SCH (10:24)
[2023-02-02] MEDS: amLODIPine BESYLATE 5 MG TABLET (FP) PO SCH (10:24)
[2023-02-02] MEDS: FOLIC ACID 1 MG TABLET (FP) PO SCH (10:24)
[2023-02-02] MEDS: SERTRALINE HCL 50 MG TABLET (FP) PO SCH (10:24)
[2023-02-02] MEDS: HYDROCHLOROTHIAZIDE 12.5 MG CAPSULE (FP) PO SCH (10:24)
[2023-02-02] MEDS: BENZTROPINE MESYLATE 1 MG TABLET PO SCH ×2 (10:24→22:12)
[2023-02-02] MEDS: traZODone HCL 100 MG TABLET (FP) PO SCH (22:12)
[2023-02-02] MEDS: THIAMINE HCL 100 MG TABLET (FP) PO SCH (22:12)
[2023-02-02] MEDS: OLANZapine 10 MG TABLET PO SCH (22:12)
[2023-02-03] MEDS: chlordiazePOXIDE HCL 25 MG CAPSULE PO SCH ×4 (05:16→22:02)
[2023-02-03] MEDS: AMANTADINE HCL 100 MG TABLET PO SCH ×3 (05:18→22:01)
[2023-02-03] MEDS: FOLIC ACID 1 MG TABLET (FP) PO SCH (10:19)
[2023-02-03] MEDS: HYDROCHLOROTHIAZIDE 12.5 MG CAPSULE (FP) PO SCH (10:19)
[2023-02-03] MEDS: BUDESONIDE/FORMETEROL FUMARATE 160/4.5 mcg INHALER IH SCH ×2 (10:19→22:02)
[2023-02-03] MEDS: BENZTROPINE MESYLATE 1 MG TABLET PO SCH ×2 (10:19→22:01)
[2023-02-03] MEDS: LISINOPRIL 20 MG TABLET PO SCH (10:19)
[2023-02-03] MEDS: PRENATAL VITAMINS W/ FOLIC ACID TABLET (FP) PO SCH (10:19)
[2023-02-03] MEDS: SERTRALINE HCL 50 MG TABLET (FP) PO SCH (10:19)
[2023-02-03] MEDS: amLODIPine BESYLATE 5 MG TABLET (FP) PO SCH (10:19)
[2023-02-03] MEDS: THIAMINE HCL 100 MG TABLET (FP) PO SCH (22:01)
[2023-02-03] MEDS: OLANZapine 10 MG TABLET PO SCH (22:01)
[2023-02-03] MEDS: traZODone HCL 100 MG TABLET (FP) PO SCH (22:02)
[2023-02-04] MEDS ORDERED: chlordiazePOXIDE HCL 10 MG CAPSULE PO PRN
[2023-02-04] MEDS: chlordiazePOXIDE HCL 10 MG CAPSULE PO SCH ×2 (05:46→10:02)
[2023-02-04] MEDS: AMANTADINE HCL 100 MG TABLET PO SCH ×2 (06:37→13:05)
[2023-02-04] MEDS: amLODIPine BESYLATE 5 MG TABLET (FP) PO SCH (10:01)
[2023-02-04] MEDS: BENZTROPINE MESYLATE 1 MG TABLET PO SCH (10:01)
[2023-02-04] MEDS: LISINOPRIL 20 MG TABLET PO SCH (10:01)
[2023-02-04] MEDS: BUDESONIDE/FORMETEROL FUMARATE 160/4.5 mcg INHALER IH SCH (10:01)
[2023-02-04] MEDS: PRENATAL VITAMINS W/ FOLIC ACID TABLET (FP) PO SCH (10:02)
[2023-02-04] MEDS: SERTRALINE HCL 50 MG TABLET (FP) PO SCH (10:02)
[2023-02-04] MEDS: HYDROCHLOROTHIAZIDE 12.5 MG CAPSULE (FP) PO SCH (10:02)
[2023-02-04] MEDS: FOLIC ACID 1 MG TABLET (FP) PO SCH (10:02)
[2023-02-04 13:52] VITALS: BP 138/87; PULSE 89; RESP 16; TEMP 97.4
[2023-02-05] MEDS ORDERED: chlordiazePOXIDE HCL 10 MG CAPSULE PO SCH (05:00)
[2023-02-06] MEDS ORDERED: chlordiazePOXIDE HCL 10 MG CAPSULE PO ONE (05:00)
== END 2023-02-04 14:42 | disposition left against medical advice (07) | DRG 770 ==
LOC: YASAS 16:36 → Y6N 19:55
PROVIDERS: ADMIT Allergy & Immunology; ATTEND Surgery
PROC: HZ2ZZZZ Detoxification Services for Substance Abuse Treatment (ICD-10-PCS; principal; 2023-01-31)
DX: F10.230 Alcohol dependence with withdrawal, uncomplicated (principal); F14.20 Cocaine dependence, uncomplicated; F12.20 Cannabis dependence, uncomplicated; F19.280 Other psychoactive substance dependence with psychoactive substance-induced anxiety disorder; F19.282 Other psychoactive substance dependence with psychoactive substance-induced sleep disorder; F31.9 Bipolar disorder, unspecified; F20.9 Schizophrenia, unspecified; G20 Parkinson's disease; I10 Essential (primary) hypertension; J45.909 Unspecified asthma, uncomplicated; M54.50 Low back pain, unspecified; G89.29 Other chronic pain; I69.854 Hemiplegia and hemiparesis following other cerebrovascular disease affecting left non-dominant side; Z99.89 Dependence on other enabling machines and devices; Z88.8 Allergy status to other drugs, medicaments and biological substances; Z86.69 Personal history of other diseases of the nervous system and sense organs
CPT/HCPCS: 36415; 80053; 85027; 86780; 87811; C9803-CS; U0003; U0005

== ENCOUNTER 2023-03-11 14:04 | Inpatient (IN) | payer OTHER ==
[2023-03-11 14:52] VITALS: BMI 21.1
[2023-03-11] MEDS ORDERED: IBUPROFEN 600 MG TABLET (FP) PO PRN (16:47)
[2023-03-11] MEDS ORDERED: hydrOXYzine PAMOATE 25 MG CAPSULE (FP) PO PRN (16:47)
[2023-03-11] MEDS ORDERED: NALOXONE HCL (KLOXXADO) 8 MG SPRAY NS PRN (16:47)
[2023-03-11] MEDS ORDERED: diazePAM 5 MG TABLET PO PRN (16:47)
[2023-03-11] MEDS ORDERED: BISMUTH SUBSALICYLATE 524 MG/30 ML PO PRN (16:47)
[2023-03-11] MEDS ORDERED: MAG HYDROX/AL HYDROX/SIMETH 30 ML UNIT-DOSE CUP PO PRN (16:47)
[2023-03-11] MEDS ORDERED: LOPERAMIDE HCL 2 MG CAPSULE PO PRN (16:47)
[2023-03-11] MEDS ORDERED: MAGNESIUM HYDROX 2400MG/30ML ORAL SUSPENSION 30 ML CUP PO PRN (16:47)
[2023-03-11] MEDS ORDERED: guaiFENesin 600 MG TABLET.ER (FP) PO PRN (16:47)
[2023-03-11] MEDS ORDERED: POLYETHYLENE GLYCOL (HEALTHYLAX) 3350 17 GM PACKET PO PRN (16:47)
[2023-03-11] MEDS ORDERED: NALOXONE HCL 0.4 MG/ML VIAL IM PRN (16:47)
[2023-03-11] MEDS ORDERED: IBUPROFEN 400 MG TABLET (FP) PO PRN (16:47)
[2023-03-11] MEDS ORDERED: ONDANSETRON *ODT* 4 MG TABLET SL PRN (16:47)
[2023-03-11] MEDS ORDERED: BENZOCAINE/MENTHOL (CHLORASEPTIC ) LOZENGE MM PRN (16:47)
[2023-03-11] MEDS ORDERED: BENZONATATE 200 MG CAPSULE PO PRN (16:47)
[2023-03-11] MEDS ORDERED: DICYCLOMINE HCL 10 MG CAPSULE PO PRN (16:47)
[2023-03-11] MEDS ORDERED: METHOCARBAMOL 500 MG TABLET PO PRN (16:47)
[2023-03-11] MEDS ORDERED: NICOTINE 10 MG CARTRIDGE (INHALER) IH PRN (16:47)
[2023-03-11] MEDS ORDERED: diazePAM 5 MG TABLET PO SCH (17:00)
[2023-03-11] MEDS: diazePAM 5 MG TABLET PO PRN (18:04)
[2023-03-11] MEDS: ACETAMINOPHEN 325 MG TABLET (FP) PO PRN (18:05)
[2023-03-11] MEDS ORDERED: MELATONIN 5 MG TABLETS PO SCH (22:00)
[2023-03-11] MEDS: diazePAM 5 MG TABLET PO SCH (22:12)
[2023-03-11] MEDS: THIAMINE HCL 100 MG TABLET (FP) PO SCH (22:12)
[2023-03-11] MEDS: ATORVASTATIN CA 40 MG TABLET (FP) PO SCH (22:12)
[2023-03-11] MEDS: AMANTADINE HCL 100 MG TABLET PO SCH (22:13)
[2023-03-11] MEDS: BUDESONIDE/FORMETEROL FUMARATE 160/4.5 mcg INHALER IH SCH (22:13)
[2023-03-12] MEDS: diazePAM 5 MG TABLET PO SCH ×4 (05:39→22:07)
[2023-03-12] MEDS: AMANTADINE HCL 100 MG TABLET PO SCH ×3 (05:39→22:07)
[2023-03-12] MEDS ORDERED: PATIENT'S OWN MEDICATION (NON-FORMULARY) (Lisinopril/Hydrochlorothiazide [Lisinopril-Hctz PO SCH (10:00)
[2023-03-12] MEDS: amLODIPine BESYLATE 5 MG TABLET (FP) PO SCH (10:05)
[2023-03-12] MEDS: PRENATAL VITAMINS W/ FOLIC ACID TABLET (FP) PO SCH (10:05)
[2023-03-12] MEDS: HYDROCHLOROTHIAZIDE 12.5 MG CAPSULE (FP) PO SCH (10:06)
[2023-03-12] MEDS: LISINOPRIL 20 MG TABLET PO SCH (10:06)
[2023-03-12] MEDS: LOSARTAN POTASSIUM 50 MG TABLET PO SCH (10:09)
[2023-03-12] MEDS: BUDESONIDE/FORMETEROL FUMARATE 160/4.5 mcg INHALER IH SCH ×2 (10:10→22:07)
[2023-03-12] MEDS: BENZTROPINE MESYLATE 1 MG TABLET PO SCH ×2 (10:30→22:07)
[2023-03-12 10:53] LABS: HEMATOCRIT 37.9 % (35.4-49); HEMOGLOBIN 13.2 GM/dL (11.7-16.9); MCH 29.6 pg (25.7-33.7); MCHC 34.8 g/dl (32.0-35.9); MEAN CELL VOLUME 85.2 fl (80-96); MEAN PLT VOLUME 7.8 fl (7.5-11.1); PLATELET COUNT 216 10^3/uL (134-434); RBC 4.45 M/mm3 (4.00-5.60); RDW 13.3 % (11.9-15.9); WHITE BLOOD COUNT 2.7 K/mm3 (4.0-10.0)
[2023-03-12 10:56] LABS: POTASSIUM 3.9 mmol/L (3.5-5.1)
[2023-03-12 11:06] LABS: BLOOD UREA NITROGEN 18.4 mg/dL (7-18); CALCIUM 9.3 mg/dL (8.5-10.1)
[2023-03-12 11:10] LABS: CREATININE 0.8 mg/dL (0.55-1.3)
[2023-03-12 11:13] LABS: ALBUMIN 3.7 g/dl (3.4-5.0)
[2023-03-12] MEDS: diazePAM 5 MG TABLET PO PRN (13:39)
[2023-03-12] MEDS: ACETAMINOPHEN 325 MG TABLET (FP) PO PRN (17:24)
[2023-03-12] MEDS: THIAMINE HCL 100 MG TABLET (FP) PO SCH (22:07)
[2023-03-12] MEDS: traZODone HCL 100 MG TABLET (FP) PO SCH (22:07)
[2023-03-12] MEDS: OLANZapine 10 MG TABLET PO SCH (22:07)
[2023-03-12] MEDS: ATORVASTATIN CA 40 MG TABLET (FP) PO SCH (22:07)
[2023-03-12] MEDS: diphenhydrAMINE HCL 25 MG CAPSULE (FP) PO PRN (22:08)
[2023-03-13] MEDS: diazePAM 5 MG TABLET PO SCH ×3 (05:25→21:15)
[2023-03-13] MEDS: AMANTADINE HCL 100 MG TABLET PO SCH ×3 (05:27→21:19)
[2023-03-13] MEDS ORDERED: diazePAM 5 MG TABLET PO SCH (06:00)
[2023-03-13] MEDS: LISINOPRIL 20 MG TABLET PO SCH (10:17)
[2023-03-13] MEDS: BENZTROPINE MESYLATE 1 MG TABLET PO SCH ×2 (10:17→21:16)
[2023-03-13] MEDS: BUDESONIDE/FORMETEROL FUMARATE 160/4.5 mcg INHALER IH SCH ×2 (10:17→21:16)
[2023-03-13] MEDS: amLODIPine BESYLATE 5 MG TABLET (FP) PO SCH (10:17)
[2023-03-13] MEDS: PRENATAL VITAMINS W/ FOLIC ACID TABLET (FP) PO SCH (10:18)
[2023-03-13] MEDS: HYDROCHLOROTHIAZIDE 12.5 MG CAPSULE (FP) PO SCH (10:18)
[2023-03-13] MEDS: LOSARTAN POTASSIUM 50 MG TABLET PO SCH (10:18)
[2023-03-13] MEDS: BACLOFEN 10 MG TABLET (FP) PO SCH ×2 (14:32→21:15)
[2023-03-13] MEDS: diazePAM 5 MG TABLET PO PRN (17:29)
[2023-03-13] MEDS: ACETAMINOPHEN 325 MG TABLET (FP) PO PRN (17:30)
[2023-03-13] MEDS: ATORVASTATIN CA 40 MG TABLET (FP) PO SCH (21:16)
[2023-03-13] MEDS: THIAMINE HCL 100 MG TABLET (FP) PO SCH (21:16)
[2023-03-13] MEDS: OLANZapine 10 MG TABLET PO SCH (21:16)
[2023-03-13] MEDS: traZODone HCL 100 MG TABLET (FP) PO SCH (21:16)
[2023-03-13] MEDS: diphenhydrAMINE HCL 25 MG CAPSULE (FP) PO PRN (21:18)
[2023-03-14] MEDS: AMANTADINE HCL 100 MG TABLET PO SCH ×3 (05:44→21:24)
[2023-03-14] MEDS: diazePAM 5 MG TABLET PO SCH ×2 (05:44→17:23)
[2023-03-14] MEDS: BACLOFEN 10 MG TABLET (FP) PO SCH ×3 (05:44→21:24)
[2023-03-14] MEDS ORDERED: diazePAM 5 MG TABLET PO SCH (06:00)
[2023-03-14] MEDS: BENZTROPINE MESYLATE 1 MG TABLET PO SCH ×2 (10:13→21:25)
[2023-03-14] MEDS: LISINOPRIL 20 MG TABLET PO SCH (10:13)
[2023-03-14] MEDS: PRENATAL VITAMINS W/ FOLIC ACID TABLET (FP) PO SCH (10:13)
[2023-03-14] MEDS: HYDROCHLOROTHIAZIDE 12.5 MG CAPSULE (FP) PO SCH (10:13)
[2023-03-14] MEDS: amLODIPine BESYLATE 5 MG TABLET (FP) PO SCH (10:13)
[2023-03-14] MEDS: diazePAM 5 MG TABLET PO PRN (10:18)
[2023-03-14] MEDS: LOSARTAN POTASSIUM 25 MG TABLET PO SCH (10:19)
[2023-03-14] MEDS: BUDESONIDE/FORMETEROL FUMARATE 160/4.5 mcg INHALER IH SCH ×2 (10:54→21:27)
[2023-03-14] MEDS: ACETAMINOPHEN 325 MG TABLET (FP) PO PRN (17:24)
[2023-03-14] MEDS: OLANZapine 10 MG TABLET PO SCH (21:25)
[2023-03-14] MEDS: ATORVASTATIN CA 40 MG TABLET (FP) PO SCH (21:25)
[2023-03-14] MEDS: THIAMINE HCL 100 MG TABLET (FP) PO SCH (21:25)
[2023-03-14] MEDS: traZODone HCL 100 MG TABLET (FP) PO SCH (21:25)
[2023-03-14] MEDS: diphenhydrAMINE HCL 25 MG CAPSULE (FP) PO PRN (21:27)
[2023-03-15] MEDS: BACLOFEN 10 MG TABLET (FP) PO SCH (05:45)
[2023-03-15] MEDS: AMANTADINE HCL 100 MG TABLET PO SCH (05:45)
[2023-03-15] MEDS ORDERED: diazePAM 5 MG TABLET PO ONE ×2 (06:00)
[2023-03-15 09:11] VITALS: BP 118/69; PULSE 70; RESP 18; TEMP 98.1
[2023-03-15] MEDS: BENZTROPINE MESYLATE 1 MG TABLET PO SCH (10:27)
[2023-03-15] MEDS: PRENATAL VITAMINS W/ FOLIC ACID TABLET (FP) PO SCH (10:27)
[2023-03-15] MEDS: LOSARTAN POTASSIUM 25 MG TABLET PO SCH (10:27)
[2023-03-15] MEDS: amLODIPine BESYLATE 5 MG TABLET (FP) PO SCH (10:27)
[2023-03-15] MEDS: HYDROCHLOROTHIAZIDE 12.5 MG CAPSULE (FP) PO SCH (10:27)
[2023-03-15] MEDS: BUDESONIDE/FORMETEROL FUMARATE 160/4.5 mcg INHALER IH SCH (10:28)
[2023-03-15] MEDS: LISINOPRIL 20 MG TABLET PO SCH (10:28)
== END 2023-03-15 11:09 | disposition home or self-care (01) | DRG 774 ==
LOC: YASAS 14:04 → Y3N 16:53
PROVIDERS: ADMIT Allergy & Immunology; ATTEND Allergy & Immunology
PROC: HZ2ZZZZ Detoxification Services for Substance Abuse Treatment (ICD-10-PCS; principal; 2023-03-11)
DX: F10.230 Alcohol dependence with withdrawal, uncomplicated (principal); F14.20 Cocaine dependence, uncomplicated; F13.20 Sedative, hypnotic or anxiolytic dependence, uncomplicated; F17.210 Nicotine dependence, cigarettes, uncomplicated; F25.9 Schizoaffective disorder, unspecified; G47.00 Insomnia, unspecified; I10 Essential (primary) hypertension; E78.5 Hyperlipidemia, unspecified; G24.01 Drug induced subacute dyskinesia; M54.50 Low back pain, unspecified; G89.29 Other chronic pain; Z86.73 Personal history of transient ischemic attack (TIA), and cerebral infarction without residual deficits; Z86.69 Personal history of other diseases of the nervous system and sense organs; Z88.8 Allergy status to other drugs, medicaments and biological substances; Z91.014 Allergy to mammalian meats
CPT/HCPCS: 36415; 80053; 85027; 86780; C9803-CS; J0475; U0003; U0005

== ENCOUNTER 2023-04-11 12:37 | Inpatient (IN) | payer OTHER ==
[2023-04-11 13:26] VITALS: BMI 23.5
[2023-04-11] MEDS ORDERED: METHOCARBAMOL 500 MG TABLET PO PRN (14:00)
[2023-04-11] MEDS ORDERED: IBUPROFEN 400 MG TABLET (FP) PO PRN (14:00)
[2023-04-11] MEDS ORDERED: LOPERAMIDE HCL 2 MG CAPSULE PO PRN (14:00)
[2023-04-11] MEDS ORDERED: MAGNESIUM HYDROX 2400MG/30ML ORAL SUSPENSION 30 ML CUP PO PRN (14:00)
[2023-04-11] MEDS ORDERED: NALOXONE HCL (KLOXXADO) 8 MG SPRAY NS PRN (14:00)
[2023-04-11] MEDS ORDERED: POLYETHYLENE GLYCOL (HEALTHYLAX) 3350 17 GM PACKET PO PRN (14:00)
[2023-04-11] MEDS ORDERED: BENZONATATE 200 MG CAPSULE PO PRN (14:00)
[2023-04-11] MEDS ORDERED: MAG HYDROX/AL HYDROX/SIMETH 30 ML UNIT-DOSE CUP PO PRN (14:00)
[2023-04-11] MEDS ORDERED: NALOXONE HCL 0.4 MG/ML VIAL IM PRN (14:00)
[2023-04-11] MEDS ORDERED: ACETAMINOPHEN 325 MG TABLET (FP) PO PRN (14:00)
[2023-04-11] MEDS ORDERED: IBUPROFEN 600 MG TABLET (FP) PO PRN (14:00)
[2023-04-11] MEDS ORDERED: ONDANSETRON *ODT* 4 MG TABLET SL PRN (14:00)
[2023-04-11] MEDS ORDERED: guaiFENesin 600 MG TABLET.ER (FP) PO PRN (14:00)
[2023-04-11] MEDS ORDERED: BISMUTH SUBSALICYLATE 262 MG/15 ML BTL PO PRN (14:00)
[2023-04-11] MEDS ORDERED: DICYCLOMINE HCL 10 MG CAPSULE PO PRN (14:00)
[2023-04-11] MEDS ORDERED: BENZOCAINE/MENTHOL (CHLORASEPTIC ) LOZENGE MM PRN (14:00)
[2023-04-11] MEDS: PRENATAL VITAMINS W/ FOLIC ACID TABLET (FP) PO SCH (15:40)
[2023-04-11] MEDS: diazePAM 5 MG TABLET PO SCH ×2 (17:36→22:32)
[2023-04-11] MEDS: diazePAM 5 MG TABLET PO PRN (19:38)
[2023-04-11] MEDS: traZODone HCL 100 MG TABLET (FP) PO SCH (22:32)
[2023-04-11] MEDS: THIAMINE HCL 100 MG TABLET (FP) PO SCH (22:32)
[2023-04-11] MEDS: ATORVASTATIN CA 40 MG TABLET (FP) PO SCH (22:32)
[2023-04-11] MEDS: BUDESONIDE/FORMETEROL FUMARATE 160/4.5 mcg INHALER IH SCH (22:33)
[2023-04-11] MEDS: MELATONIN 5 MG TABLETS PO SCH (22:34)
[2023-04-12] MEDS: diazePAM 5 MG TABLET PO SCH ×4 (05:31→22:01)
[2023-04-12] MEDS ORDERED: PATIENT'S OWN MEDICATION (NON-FORMULARY) (Lisinopril/Hydrochlorothiazide [Lisinopril-Hctz PO SCH (10:00)
[2023-04-12] MEDS: BUDESONIDE/FORMETEROL FUMARATE 160/4.5 mcg INHALER IH SCH ×2 (10:02→21:58)
[2023-04-12] MEDS: LOSARTAN POTASSIUM 25 MG TABLET PO SCH (10:03)
[2023-04-12] MEDS: HYDROCHLOROTHIAZIDE 12.5 MG CAPSULE (FP) PO SCH (10:03)
[2023-04-12] MEDS: PRENATAL VITAMINS W/ FOLIC ACID TABLET (FP) PO SCH (10:03)
[2023-04-12] MEDS: amLODIPine BESYLATE 5 MG TABLET (FP) PO SCH (10:03)
[2023-04-12] MEDS: LISINOPRIL 20 MG TABLET PO SCH (10:03)
[2023-04-12] MEDS: NICOTINE 7 MG/24 HOURS TOPICAL PATCH TD SCH (10:09)
[2023-04-12 11:36] LABS: HEMATOCRIT 36.8 % (35.4-49); MCH 29.9 pg (25.7-33.7); MCHC 35.3 g/dl (32.0-35.9); MEAN CELL VOLUME 84.5 fl (80-96); MEAN PLT VOLUME 7.9 fl (7.5-11.1); PLATELET COUNT 204 10^3/uL (134-434); RBC 4.36 M/mm3 (4.00-5.60); RDW 13.6 % (11.9-15.9); WHITE BLOOD COUNT 2.3 K/mm3 (4.0-10.0)
[2023-04-12 11:41] LABS: CALCIUM 9.1 mg/dL (8.5-10.1)
[2023-04-12 11:42] LABS: ALBUMIN 3.6 g/dl (3.4-5.0); BLOOD UREA NITROGEN 16.6 mg/dL (7-18)
[2023-04-12 11:45] LABS: CREATININE 0.6 mg/dL (0.55-1.3)
[2023-04-12 11:46] LABS: BILIRUBIN,TOTAL 1.1 mg/dL (0.2-1); TOT PROT 6.8 g/dl (6.4-8.2)
[2023-04-12] MEDS: diazePAM 5 MG TABLET PO PRN (13:40)
[2023-04-12] MEDS ORDERED: LACTULOSE 20 GM/30 ML UDC (FOR ORAL USE ONLY) PO PRN (14:05)
[2023-04-12] MEDS ORDERED: diphenhydrAMINE HCL 25 MG CAPSULE (FP) PO ONE (17:53)
[2023-04-12] MEDS: OLANZapine 10 MG TABLET PO SCH (21:57)
[2023-04-12] MEDS: THIAMINE HCL 100 MG TABLET (FP) PO SCH (21:57)
[2023-04-12] MEDS: traZODone HCL 50 MG TABLET (FP) PO SCH (21:58)
[2023-04-12] MEDS: traZODone HCL 100 MG TABLET (FP) PO SCH (21:58)
[2023-04-12] MEDS: BENZTROPINE MESYLATE 1 MG TABLET PO SCH (21:58)
[2023-04-12] MEDS: ATORVASTATIN CA 40 MG TABLET (FP) PO SCH (21:58)
[2023-04-12] MEDS: MELATONIN 5 MG TABLETS PO SCH (22:01)
[2023-04-13] MEDS: traZODone HCL 100 MG TABLET (FP) PO SCH (00:06)
[2023-04-13] MEDS: diazePAM 5 MG TABLET PO SCH ×3 (05:38→22:06)
[2023-04-13] MEDS: PRENATAL VITAMINS W/ FOLIC ACID TABLET (FP) PO SCH (10:34)
[2023-04-13] MEDS: HYDROCHLOROTHIAZIDE 12.5 MG CAPSULE (FP) PO SCH (10:34)
[2023-04-13] MEDS: amLODIPine BESYLATE 5 MG TABLET (FP) PO SCH (10:35)
[2023-04-13] MEDS: BUDESONIDE/FORMETEROL FUMARATE 160/4.5 mcg INHALER IH SCH ×2 (10:35→22:05)
[2023-04-13] MEDS: BENZTROPINE MESYLATE 1 MG TABLET PO SCH ×2 (10:35→22:06)
[2023-04-13] MEDS: LISINOPRIL 20 MG TABLET PO SCH (10:35)
[2023-04-13] MEDS: NICOTINE 7 MG/24 HOURS TOPICAL PATCH TD SCH (10:36)
[2023-04-13] MEDS: LOSARTAN POTASSIUM 25 MG TABLET PO SCH (10:37)
[2023-04-13] MEDS: diazePAM 5 MG TABLET PO PRN ×2 (10:40→17:27)
[2023-04-13] MEDS: LACTULOSE 20 GM/30 ML UDC (FOR ORAL USE ONLY) PO SCH ×3 (13:25→22:05)
[2023-04-13] MEDS: hydrOXYzine PAMOATE 25 MG CAPSULE (FP) PO PRN (19:23)
[2023-04-13] MEDS: traZODone HCL 50 MG TABLET (FP) PO SCH (22:06)
[2023-04-13] MEDS: OLANZapine 10 MG TABLET PO SCH (22:07)
[2023-04-13] MEDS: ATORVASTATIN CA 40 MG TABLET (FP) PO SCH (22:07)
[2023-04-13] MEDS: MELATONIN 5 MG TABLETS PO SCH (22:07)
[2023-04-13] MEDS: THIAMINE HCL 100 MG TABLET (FP) PO SCH (22:46)
[2023-04-14] MEDS: diazePAM 5 MG TABLET PO SCH ×2 (05:35→17:02)
[2023-04-14] MEDS ORDERED: BUDESONIDE/FORMETEROL FUMARATE 160/4.5 mcg INHALER IH SCH (10:00)
[2023-04-14] MEDS: HYDROCHLOROTHIAZIDE 12.5 MG CAPSULE (FP) PO SCH (10:32)
[2023-04-14] MEDS: NICOTINE 7 MG/24 HOURS TOPICAL PATCH TD SCH (10:32)
[2023-04-14] MEDS: BENZTROPINE MESYLATE 1 MG TABLET PO SCH ×2 (10:33→23:07)
[2023-04-14] MEDS: amLODIPine BESYLATE 5 MG TABLET (FP) PO SCH (10:33)
[2023-04-14] MEDS: LISINOPRIL 20 MG TABLET PO SCH (10:33)
[2023-04-14] MEDS: LOSARTAN POTASSIUM 25 MG TABLET PO SCH (10:33)
[2023-04-14] MEDS: PRENATAL VITAMINS W/ FOLIC ACID TABLET (FP) PO SCH (10:33)
[2023-04-14] MEDS: BUDESONIDE/FORMETEROL FUMARATE 160/4.5 mcg INHALER IH SCH ×2 (10:33→22:04)
[2023-04-14] MEDS: LACTULOSE 20 GM/30 ML UDC (FOR ORAL USE ONLY) PO SCH ×4 (10:36→22:07)
[2023-04-14] MEDS: diazePAM 5 MG TABLET PO PRN (10:36)
[2023-04-14] MEDS: hydrOXYzine PAMOATE 25 MG CAPSULE (FP) PO PRN (19:11)
[2023-04-14] MEDS: MELATONIN 5 MG TABLETS PO SCH (22:04)
[2023-04-14] MEDS: ATORVASTATIN CA 40 MG TABLET (FP) PO SCH (22:04)
[2023-04-14] MEDS: OLANZapine 10 MG TABLET PO SCH (22:04)
[2023-04-14] MEDS: traZODone HCL 50 MG TABLET (FP) PO SCH (22:04)
[2023-04-14] MEDS: THIAMINE HCL 100 MG TABLET (FP) PO SCH (22:04)
[2023-04-15] MEDS ORDERED: diazePAM 5 MG TABLET PO ONE (06:00)
[2023-04-15 09:28] VITALS: BP 142/90; PULSE 84; RESP 18; TEMP 97.9
[2023-04-15] MEDS: PRENATAL VITAMINS W/ FOLIC ACID TABLET (FP) PO SCH (09:40)
[2023-04-15] MEDS: LISINOPRIL 20 MG TABLET PO SCH (09:40)
[2023-04-15] MEDS: BUDESONIDE/FORMETEROL FUMARATE 160/4.5 mcg INHALER IH SCH (09:40)
[2023-04-15] MEDS: HYDROCHLOROTHIAZIDE 12.5 MG CAPSULE (FP) PO SCH (09:40)
[2023-04-15] MEDS: amLODIPine BESYLATE 5 MG TABLET (FP) PO SCH (09:40)
[2023-04-15] MEDS: LOSARTAN POTASSIUM 25 MG TABLET PO SCH (09:40)
[2023-04-15] MEDS: LACTULOSE 20 GM/30 ML UDC (FOR ORAL USE ONLY) PO SCH (09:41)
[2023-04-15] MEDS: NICOTINE 7 MG/24 HOURS TOPICAL PATCH TD SCH (09:41)
[2023-04-15] MEDS: BENZTROPINE MESYLATE 1 MG TABLET PO SCH (10:28)
== END 2023-04-15 10:58 | disposition home or self-care (01) | DRG 774 ==
LOC: YASAS 12:37 → Y6N 15:20
PROVIDERS: ADMIT Allergy & Immunology; ATTEND Surgery
PROC: HZ2ZZZZ Detoxification Services for Substance Abuse Treatment (ICD-10-PCS; principal; 2023-04-11)
DX: F10.230 Alcohol dependence with withdrawal, uncomplicated (principal); F13.230 Sedative, hypnotic or anxiolytic dependence with withdrawal, uncomplicated; F14.20 Cocaine dependence, uncomplicated; F12.20 Cannabis dependence, uncomplicated; F17.210 Nicotine dependence, cigarettes, uncomplicated; F25.1 Schizoaffective disorder, depressive type; F19.282 Other psychoactive substance dependence with psychoactive substance-induced sleep disorder; F19.280 Other psychoactive substance dependence with psychoactive substance-induced anxiety disorder; E72.20 Disorder of urea cycle metabolism, unspecified; I69.854 Hemiplegia and hemiparesis following other cerebrovascular disease affecting left non-dominant side; I10 Essential (primary) hypertension; J45.20 Mild intermittent asthma, uncomplicated; G24.01 Drug induced subacute dyskinesia; M54.50 Low back pain, unspecified; G89.29 Other chronic pain; Z88.8 Allergy status to other drugs, medicaments and biological substances; Z91.018 Allergy to other foods
CPT/HCPCS: 36415; 80053; 82140; 85027; 86780; 87635; 87811

== ENCOUNTER 2023-06-18 20:52 | Inpatient (IN) | payer OTHER ==
[2023-06-18] MEDS ORDERED: ACETAMINOPHEN 1000 MG/100 ML BAG IVPB ONE (21:16)
[2023-06-18] MEDS ORDERED: ASPIRIN 81 MG CHEWABLE TABLETS PO ONE (21:16)
[2023-06-18] MEDS ORDERED: ACETAMINOPHEN INJECTION 100 ML IVPB ONE (21:33)
[2023-06-18] MEDS ORDERED: ASPIRIN 81 MG CHEWABLE TABLETS ONE (21:33)
[2023-06-18 22:33] LABS: BASO % 0.5 % (0-2.0); EOS % 5.6 % (0-4.5); HEMATOCRIT 43.2 % (35.4-49); HEMOGLOBIN 14.9 GM/dL (11.7-16.9); LYMPH % 42.3 % (8-40); MCH 29.3 pg (25.7-33.7); MCHC 34.6 g/dl (32.0-35.9); MEAN CELL VOLUME 84.7 fl (80-96); MEAN PLT VOLUME 7.2 fl (7.5-11.1); MONO % 14.6 % (3.8-10.2); PLATELET COUNT 205 10^3/uL (134-434); RDW 13.4 % (11.9-15.9); WHITE BLOOD COUNT 3.1 K/mm3 (4.0-10.0)
[2023-06-18 22:39] LABS: INR 1.18 (0.83-1.09); PROTHROMBIN TIME (PATIENT) 13.7 SEC (9.7-13.0)
[2023-06-18 22:42] LABS: ACTIVATED PTT 30.8 SECONDS (25.2-36.5)
[2023-06-18 22:50] LABS: POTASSIUM 5.1 mmol/L (3.5-5.1)
[2023-06-18 22:52] LABS: CALCIUM 9.5 mg/dL (8.5-10.1)
[2023-06-18 22:53] LABS: BLOOD UREA NITROGEN 21.8 mg/dL (7-18)
[2023-06-18 22:56] LABS: CREATININE 0.8 mg/dL (0.55-1.3)
[2023-06-18 22:59] LABS: BILIRUBIN,TOTAL 1.4 mg/dL (0.2-1); TOT PROT 7.6 g/dl (6.4-8.2)
[2023-06-19 01:41] LABS: POTASSIUM 3.5 mmol/L (3.5-5.1)
[2023-06-19 01:42] LABS: BLOOD UREA NITROGEN 22.5 mg/dL (7-18); CALCIUM 9.3 mg/dL (8.5-10.1)
[2023-06-19 01:46] LABS: CREATININE 0.8 mg/dL (0.55-1.3)
[2023-06-19 03:22] LABS: HIV INTERPRETATION NEGATIVE (NEGATIVE)
[2023-06-19 03:49] VITALS: BMI 22.8
[2023-06-19 04:03] LABS: URINE APPEARANCE CLEAR; URINE BILIRUBIN NEGATIVE (NEGATIVE); URINE COLOR YELLOW; URINE GLUCOSE (UA) NEGATIVE (NEGATIVE); URINE KETONE NEGATIVE (NEGATIVE); URINE LEUK ESTERASE NEGATIVE (NEGATIVE); URINE NITRITE NEGATIVE (NEGATIVE); URINE PROTEIN NEGATIVE (NEGATIVE)
[2023-06-19 04:04] LABS: EPI CELLS 3 /uL (0-25.1); HYALINE CASTS 0 /uL (0-3.1); URINE BACTERIA 7 /uL (0-1359); URINE RBC 2 /uL (0-23.9); URINE WBC 3 /uL (0-25.8)
[2023-06-19 04:07] LABS: OPIATES, URI NEGATIVE (NEGATIVE); PHENCYCLIDINE,URINE NEGATIVE (NEGATIVE); URINE BARBITURATES NEGATIVE (NEGATIVE); URINE BENZODIAZEPINES NEGATIVE (NEGATIVE)
[2023-06-19 04:08] LABS: METHADONE, UR NEGATIVE (NEGATIVE)
[2023-06-19] MEDS ORDERED: diazePAM 5 MG TABLET PO PRN (05:04)
[2023-06-19 05:11] LABS: COCAINE, UR POSITIVE (NEGATIVE); URINE AMPHETAMINES NEGATIVE (NEGATIVE)
[2023-06-19] MEDS ORDERED: LORazepam 2 MG/ML SDV VIAL IVPUSH PRN (05:13)
[2023-06-19] MEDS: diazePAM 5 MG TABLET PO SCH ×2 (06:47→10:15)
[2023-06-19] MEDS: AMANTADINE HCL 100 MG TABLET PO SCH ×3 (06:48→22:58)
[2023-06-19 07:05] LABS: PHOSPHOROUS 3.7 mg/dL (2.5-4.9)
[2023-06-19] MEDS ORDERED: ENOXAPARIN NA (PORCINE) 40 MG/0.4 ML DISP.SYRIN SQ SCH (10:00)
[2023-06-19] MEDS ORDERED: clonazePAM 0.5 MG TABLET PO SCH (10:00)
[2023-06-19] MEDS ORDERED: BENZTROPINE MESYLATE 1 MG TABLET PO SCH (10:00)
[2023-06-19] MEDS ORDERED: traZODone HCL 100 MG TABLET (FP) PO SCH (10:00)
[2023-06-19] MEDS ORDERED: HYDROCHLOROTHIAZIDE 12.5 MG CAPSULE (FP) PO SCH (10:00)
[2023-06-19] MEDS: ASPIRIN COATED 81 MG TABLET.EC PO SCH (10:14)
[2023-06-19] MEDS: amLODIPine BESYLATE 5 MG TABLET (FP) PO SCH (10:15)
[2023-06-19] MEDS: LISINOPRIL 20 MG TABLET PO SCH (10:15)
[2023-06-19] MEDS: OLANZapine 10 MG TABLET PO SCH (10:17)
[2023-06-19] MEDS: BUDESONIDE/FORMETEROL FUMARATE 160/4.5 mcg INHALER IH SCH ×2 (10:18→22:56)
[2023-06-19] MEDS: BENZTROPINE MESYLATE 1 MG TABLET PO SCH ×2 (15:36→22:56)
[2023-06-19] MEDS ORDERED: diphenhydrAMINE HCL 25 MG CAPSULE (FP) PO SCH (22:00)
[2023-06-19] MEDS ORDERED: ATORVASTATIN CA 40 MG TABLET (FP) PO SCH (22:00)
[2023-06-19] MEDS ORDERED: MELATONIN 5 MG TABLETS PO SCH (22:00)
[2023-06-20] MEDS ORDERED: diazePAM 5 MG TABLET PO SCH (06:00)
[2023-06-20] MEDS: AMANTADINE HCL 100 MG TABLET PO SCH ×3 (06:36→22:20)
[2023-06-20] MEDS: amLODIPine BESYLATE 5 MG TABLET (FP) PO SCH (10:46)
[2023-06-20] MEDS: LISINOPRIL 20 MG TABLET PO SCH (10:46)
[2023-06-20] MEDS: BENZTROPINE MESYLATE 1 MG TABLET PO SCH ×2 (10:48→22:20)
[2023-06-20] MEDS: OLANZapine 10 MG TABLET PO SCH (10:49)
[2023-06-20] MEDS: ASPIRIN COATED 81 MG TABLET.EC PO SCH (10:49)
[2023-06-20] MEDS: BUDESONIDE/FORMETEROL FUMARATE 160/4.5 mcg INHALER IH SCH ×2 (11:00→22:20)
[2023-06-20 12:01] LABS: BASO % 0.5 % (0-2.0); EOS % 6.6 % (0-4.5); HEMATOCRIT 41.2 % (35.4-49); LYMPH % 27.1 % (8-40); MCH 28.9 pg (25.7-33.7); MEAN CELL VOLUME 85.2 fl (80-96); MEAN PLT VOLUME 7.4 fl (7.5-11.1); MONO % 15.8 % (3.8-10.2); PLATELET COUNT 189 10^3/uL (134-434); RBC 4.83 M/mm3 (4.00-5.60); RDW 13.3 % (11.9-15.9); WHITE BLOOD COUNT 2.9 K/mm3 (4.0-10.0)
[2023-06-20 12:22] LABS: POTASSIUM 3.8 mmol/L (3.5-5.1)
[2023-06-20 12:24] LABS: CALCIUM 8.8 mg/dL (8.5-10.1)
[2023-06-20 12:25] LABS: ALBUMIN 3.4 g/dl (3.4-5.0); BLOOD UREA NITROGEN 25.4 mg/dL (7-18)
[2023-06-20 12:28] LABS: CREATININE 0.8 mg/dL (0.55-1.3)
[2023-06-20 12:29] LABS: TOT PROT 6.6 g/dl (6.4-8.2)
[2023-06-20] MEDS: IBUPROFEN 600 MG TABLET (FP) PO PRN ×2 (15:53→22:21)
[2023-06-20] MEDS: ALPRAZolam 1 MG TABLET PO PRN (15:54)
[2023-06-21] MEDS ORDERED: diazePAM 5 MG TABLET PO SCH (06:00)
[2023-06-21] MEDS: AMANTADINE HCL 100 MG TABLET PO SCH ×3 (06:17→21:29)
[2023-06-21 06:28] LABS: BASO % 0.5 % (0-2.0); EOS % 7.3 % (0-4.5); HEMATOCRIT 41.6 % (35.4-49); LYMPH % 40.8 % (8-40); MCH 29.1 pg (25.7-33.7); MCHC 33.7 g/dl (32.0-35.9); MEAN CELL VOLUME 86.3 fl (80-96); MEAN PLT VOLUME 7.9 fl (7.5-11.1); MONO % 12.9 % (3.8-10.2); NEUT % 38.5 % (42.8-82.8); PLATELET COUNT 177 10^3/uL (134-434); RBC 4.82 M/mm3 (4.00-5.60); RDW 13.1 % (11.9-15.9); WHITE BLOOD COUNT 2.7 K/mm3 (4.0-10.0)
[2023-06-21 06:51] LABS: POTASSIUM 3.7 mmol/L (3.5-5.1)
[2023-06-21 06:56] LABS: CALCIUM 8.5 mg/dL (8.5-10.1)
[2023-06-21 06:57] LABS: ALBUMIN 3.6 g/dl (3.4-5.0); BLOOD UREA NITROGEN 22.6 mg/dL (7-18); MAGNESIUM 1.9 mg/dL (1.8-2.4)
[2023-06-21 07:00] LABS: CREATININE 0.8 mg/dL (0.55-1.3); PHOSPHOROUS 3.6 mg/dL (2.5-4.9)
[2023-06-21 07:01] LABS: TOT PROT 6.5 g/dl (6.4-8.2)
[2023-06-21] MEDS: IBUPROFEN 600 MG TABLET (FP) PO PRN ×2 (09:32→18:29)
[2023-06-21] MEDS: amLODIPine BESYLATE 5 MG TABLET (FP) PO SCH (09:33)
[2023-06-21] MEDS: OLANZapine 10 MG TABLET PO SCH (09:33)
[2023-06-21] MEDS: ASPIRIN COATED 81 MG TABLET.EC PO SCH (09:33)
[2023-06-21] MEDS: BENZTROPINE MESYLATE 1 MG TABLET PO SCH ×2 (09:33→21:29)
[2023-06-21] MEDS: LISINOPRIL 20 MG TABLET PO SCH (09:33)
[2023-06-21] MEDS: BUDESONIDE/FORMETEROL FUMARATE 160/4.5 mcg INHALER IH SCH ×2 (09:34→21:29)
[2023-06-21] MEDS: ALPRAZolam 1 MG TABLET PO PRN (13:48)
[2023-06-21] MEDS ORDERED: MELATONIN 5 MG TABLETS PO SCH (22:00)
[2023-06-22] MEDS ORDERED: diazePAM 5 MG TABLET PO ONE (06:00)
[2023-06-22] MEDS: AMANTADINE HCL 100 MG TABLET PO SCH ×3 (06:15→21:17)
[2023-06-22] MEDS: BENZTROPINE MESYLATE 1 MG TABLET PO SCH ×2 (09:00→21:17)
[2023-06-22] MEDS: LISINOPRIL 20 MG TABLET PO SCH (09:00)
[2023-06-22] MEDS: amLODIPine BESYLATE 5 MG TABLET (FP) PO SCH (09:00)
[2023-06-22] MEDS: ASPIRIN COATED 81 MG TABLET.EC PO SCH (09:00)
[2023-06-22] MEDS: BUDESONIDE/FORMETEROL FUMARATE 160/4.5 mcg INHALER IH SCH ×2 (09:01→21:17)
[2023-06-22] MEDS: OLANZapine 10 MG TABLET PO SCH (09:01)
[2023-06-22] MEDS: ALPRAZolam 1 MG TABLET PO PRN ×2 (11:46→23:53)
[2023-06-23 01:28] VITALS: RESP 18
[2023-06-23] MEDS: AMANTADINE HCL 100 MG TABLET PO SCH (05:18)
[2023-06-23] MEDS: amLODIPine BESYLATE 5 MG TABLET (FP) PO SCH (09:06)
[2023-06-23] MEDS: ASPIRIN COATED 81 MG TABLET.EC PO SCH (09:06)
[2023-06-23] MEDS: BENZTROPINE MESYLATE 1 MG TABLET PO SCH (09:07)
[2023-06-23] MEDS: OLANZapine 10 MG TABLET PO SCH (09:07)
[2023-06-23] MEDS: LISINOPRIL 20 MG TABLET PO SCH (09:07)
[2023-06-23 09:09] VITALS: BP 136/87; PULSE 67; TEMP 98.4
[2023-06-23] MEDS: BUDESONIDE/FORMETEROL FUMARATE 160/4.5 mcg INHALER IH SCH (09:09)
== END 2023-06-23 10:00 | disposition other institution (70) | DRG 774 ==
LOC: JER 20:52 → JERBED 23:11 → INTOOBSV 23:11 → J4S 06-19 01:28 → OBSVTOIN 06-21 09:25
PROVIDERS: ADMIT Internal Medicine; ATTEND Internal Medicine
DX: F14.188 Cocaine abuse with other cocaine-induced disorder (principal); I10 Essential (primary) hypertension; Z86.73 Personal history of transient ischemic attack (TIA), and cerebral infarction without residual deficits; D70.9 Neutropenia, unspecified; F31.9 Bipolar disorder, unspecified; F25.9 Schizoaffective disorder, unspecified; E78.5 Hyperlipidemia, unspecified; F10.10 Alcohol abuse, uncomplicated; R07.89 Other chest pain; G92.9 Unspecified toxic encephalopathy; E80.6 Other disorders of bilirubin metabolism; F12.10 Cannabis abuse, uncomplicated; Z59.00 Homelessness unspecified
CPT/HCPCS: 36415; 70450-TC; 71045-TC-FY; 71275-TC; 74174-TC; 80048; 80053; 80307; 81003; 82550; 82553; 83735; 84100; 84484; 85025; 85610; 85730; 86803; 87389; 87635; 93005; 93010; 93306-TC; 97116-GP; 97161-GP; 99285-25; G0378

== ENCOUNTER 2023-06-23 10:38 | Inpatient (IN) | payer OTHER ==
[~2023-06-23 10:38] MED LIST: HYDROCHLOROTHIAZIDE 12.5 MG CAPSULE (FP) PO SCH
[2023-06-23 10:59] VITALS: BMI 23.1
[2023-06-23] MEDS ORDERED: IBUPROFEN 600 MG TABLET (FP) PO PRN (12:04)
[2023-06-23] MEDS ORDERED: NALOXONE HCL (KLOXXADO) 8 MG SPRAY NS PRN (12:04)
[2023-06-23] MEDS ORDERED: ACETAMINOPHEN 325 MG TABLET (FP) PO PRN (12:04)
[2023-06-23] MEDS ORDERED: NALOXONE HCL 0.4 MG/ML VIAL IM PRN (12:04)
[2023-06-23] MEDS ORDERED: MAG HYDROX/AL HYDROX/SIMETH 30 ML UNIT-DOSE CUP PO PRN (12:04)
[2023-06-23] MEDS ORDERED: AMMONIUM LACTATE 12% LOTION 225 GM BOTTLE TP PRN (12:04)
[2023-06-23] MEDS ORDERED: MAGNESIUM HYDROX 2400MG/30ML ORAL SUSPENSION 30 ML CUP PO PRN (12:04)
[2023-06-23] MEDS ORDERED: BENZOCAINE/MENTHOL (CHLORASEPTIC ) LOZENGE MM PRN (12:04)
[2023-06-23] MEDS ORDERED: POLYETHYLENE GLYCOL (HEALTHYLAX) 3350 17 GM PACKET PO PRN (12:04)
[2023-06-23] MEDS ORDERED: NICOTINE 7 MG/24 HOURS TOPICAL PATCH TD PRN (12:04)
[2023-06-23] MEDS ORDERED: guaiFENesin 600 MG TABLET.ER (FP) PO PRN (12:04)
[2023-06-23] MEDS ORDERED: BENZONATATE 200 MG CAPSULE PO PRN (12:04)
[2023-06-23] MEDS ORDERED: hydrOXYzine PAMOATE 25 MG CAPSULE (FP) PO PRN (12:04)
[2023-06-23] MEDS ORDERED: LOPERAMIDE HCL 2 MG CAPSULE PO PRN (12:04)
[2023-06-23] MEDS ORDERED: IBUPROFEN 400 MG TABLET (FP) PO PRN (12:04)
[2023-06-23] MEDS ORDERED: NICOTINE POLACRILEX 4 MG GUM BUC PRN (12:04)
[2023-06-23] MEDS ORDERED: COLLOIDAL OATMEAL 1 BAR EACH TP PRN (12:04)
[2023-06-23] MEDS ORDERED: cloNIDine HCL 0.1 MG TABLET PO ONE (12:14)
[2023-06-23] MEDS ORDERED: LISINOPRIL 20 MG TABLET PO SCH ×2 (12:15→14:15)
[2023-06-23] MEDS ORDERED: ASPIRIN COATED 81 MG TABLET.EC PO SCH (12:15)
[2023-06-23] MEDS ORDERED: PRENATAL VITAMINS W/ FOLIC ACID TABLET (FP) PO SCH (12:15)
[2023-06-23] MEDS ORDERED: ASPIRIN 81 MG CHEWABLE TABLETS ONE (14:04)
[2023-06-23] MEDS ORDERED: HYDROCHLOROTHIAZIDE 12.5 MG CAPSULE (FP) ONE (14:04)
[2023-06-23] MEDS ORDERED: LISINOPRIL 10 MG TABLET ONE (14:04)
[2023-06-23] MEDS ORDERED: HYDROCHLOROTHIAZIDE 12.5 MG CAPSULE (FP) PO ONE (14:10)
[2023-06-23] MEDS ORDERED: LISINOPRIL 10 MG TABLET PO ONE (14:11)
[2023-06-23] MEDS ORDERED: HYDROCHLOROTHIAZIDE 12.5 MG CAPSULE (FP) PO SCH (14:15)
[2023-06-23] MEDS ORDERED: TUBERCULIN PPD 5 TU/0.1ML SYRINGE (IN PATIENT USE ONLY) ID ONE (14:30)
[2023-06-23] MEDS ORDERED: cloNIDine HCL 0.1 MG TABLET PO PRN (15:58)
[2023-06-23] MEDS: BUDESONIDE/FORMETEROL FUMARATE 160/4.5 mcg INHALER IH SCH ×2 (16:04→23:41)
[2023-06-23 18:15] VITALS: RESP 18; TEMP 97.5
[2023-06-23 18:18] VITALS: BP 152/100; PULSE 105
[2023-06-23] MEDS ORDERED: ATORVASTATIN CA 40 MG TABLET (FP) PO SCH (22:00)
[2023-06-23] MEDS ORDERED: MELATONIN 5 MG TABLETS PO SCH (22:00)
[2023-06-23] MEDS ORDERED: THIAMINE HCL 100 MG TABLET (FP) PO SCH (22:00)
[2023-06-23] MEDS ORDERED: cloNIDine HCL 0.1 MG TABLET PO SCH (22:00)
[2023-06-24] MEDS ORDERED: amLODIPine BESYLATE 5 MG TABLET (FP) PO SCH (10:00)
== END 2023-06-24 02:15 | disposition short-term general hospital (02) | DRG 772 ==
LOC: YASAS 10:38 → Y3E 13:44
PROVIDERS: ADMIT Allergy & Immunology; ATTEND Psychiatry & Neurology Pain Medicine
PROC: HZ42ZZZ Group Counseling for Substance Abuse Treatment, Cognitive-Behavioral (ICD-10-PCS; principal; 2023-06-23)
DX: F10.20 Alcohol dependence, uncomplicated (principal); F14.20 Cocaine dependence, uncomplicated; F13.20 Sedative, hypnotic or anxiolytic dependence, uncomplicated; F25.9 Schizoaffective disorder, unspecified; F31.9 Bipolar disorder, unspecified; E78.5 Hyperlipidemia, unspecified; I10 Essential (primary) hypertension; G24.02 Drug induced acute dystonia; J45.909 Unspecified asthma, uncomplicated; I69.854 Hemiplegia and hemiparesis following other cerebrovascular disease affecting left non-dominant side
CPT/HCPCS: 87635; 87811

== ENCOUNTER 2023-06-23 18:29 | Observation (INO) | payer OTHER ==
[2023-06-23 18:44] VITALS: BMI 23.0
[2023-06-23] MEDS ORDERED: LORazepam 2 MG/ML SDV VIAL IM ONE (19:25)
[2023-06-23] MEDS ORDERED: ACETAMINOPHEN 500 MG TABLET (FP) PO ONE (20:58)
[2023-06-23] MEDS ORDERED: ACETAMINOPHEN 325 MG TABLET (FP) ONE (21:04)
[2023-06-23 21:06] LABS: BASO % 0.5 % (0-2.0); EOS % 4.1 % (0-4.5); HEMATOCRIT 46.2 % (35.4-49); HEMOGLOBIN 15.7 GM/dL (11.7-16.9); LYMPH % 26.2 % (8-40); MCH 29.5 pg (25.7-33.7); MEAN CELL VOLUME 86.8 fl (80-96); MEAN PLT VOLUME 7.9 fl (7.5-11.1); MONO % 8.9 % (3.8-10.2); NEUT % 60.3 % (42.8-82.8); PLATELET COUNT 250 10^3/uL (134-434); RBC 5.32 M/mm3 (4.00-5.60); RDW 13.5 % (11.9-15.9); WHITE BLOOD COUNT 3.5 K/mm3 (4.0-10.0)
[2023-06-23 21:14] LABS: INR 1.14 (0.83-1.09); PROTHROMBIN TIME (PATIENT) 13.2 SEC (9.7-13.0)
[2023-06-23 21:17] LABS: ACTIVATED PTT 29.4 SECONDS (25.2-36.5)
[2023-06-23 21:18] LABS: POTASSIUM 3.9 mmol/L (3.5-5.1)
[2023-06-23 21:21] LABS: BLOOD UREA NITROGEN 22.1 mg/dL (7-18)
[2023-06-23 21:24] LABS: CREATININE 0.9 mg/dL (0.55-1.3)
[2023-06-23 21:26] LABS: BILIRUBIN,TOTAL 0.6 mg/dL (0.2-1)
[2023-06-23 21:42] LABS: COCAINE, UR NEGATIVE (NEGATIVE); METHADONE, UR NEGATIVE (NEGATIVE); OPIATES, URI NEGATIVE (NEGATIVE); URINE AMPHETAMINES NEGATIVE (NEGATIVE); URINE BARBITURATES NEGATIVE (NEGATIVE)
[2023-06-23 21:43] LABS: PHENCYCLIDINE,URINE NEGATIVE (NEGATIVE)
[2023-06-23 21:52] LABS: URINE BENZODIAZEPINES POSITIVE (NEGATIVE)
[2023-06-23 21:53] LABS: ALBUMIN 4.4 g/dl (3.4-5.0); CALCIUM 9.9 mg/dL (8.5-10.1); TOT PROT 8.6 g/dl (6.4-8.2)
[2023-06-24] MEDS: BUDESONIDE/FORMETEROL FUMARATE 160/4.5 mcg INHALER IH SCH ×2 (06:15→09:52)
[2023-06-24] MEDS ORDERED: LORazepam 1 MG TABLET PO ONE (06:31)
[2023-06-24] MEDS: AMANTADINE HCL 100 MG TABLET PO SCH ×2 (07:28→14:04)
[2023-06-24 08:20] VITALS: RESP 18
[2023-06-24 08:42] LABS: HEMATOCRIT 39.7 % (35.4-49); HEMOGLOBIN 14.1 GM/dL (11.7-16.9); MCHC 35.6 g/dl (32.0-35.9); MEAN CELL VOLUME 84.2 fl (80-96); MEAN PLT VOLUME 7.7 fl (7.5-11.1); PLATELET COUNT 209 10^3/uL (134-434); RBC 4.71 M/mm3 (4.00-5.60); RDW 13.2 % (11.9-15.9)
[2023-06-24 09:03] LABS: POTASSIUM 3.7 mmol/L (3.5-5.1)
[2023-06-24 09:14] LABS: ALBUMIN 3.9 g/dl (3.4-5.0); BLOOD UREA NITROGEN 19.1 mg/dL (7-18); CALCIUM 8.9 mg/dL (8.5-10.1)
[2023-06-24 09:17] LABS: CREATININE 0.7 mg/dL (0.55-1.3); PHOSPHOROUS 3.2 mg/dL (2.5-4.9)
[2023-06-24 09:18] LABS: BILIRUBIN,TOTAL 0.8 mg/dL (0.2-1)
[2023-06-24 09:19] LABS: TOT PROT 7.3 g/dl (6.4-8.2)
[2023-06-24] MEDS ORDERED: LISINOPRIL 20 MG TABLET PO SCH (10:00)
[2023-06-24] MEDS ORDERED: OLANZapine 10 MG TABLET PO SCH (10:00)
[2023-06-24] MEDS ORDERED: HYDROCHLOROTHIAZIDE 12.5 MG CAPSULE (FP) PO SCH (10:00)
[2023-06-24] MEDS ORDERED: ASPIRIN 81 MG CHEWABLE TABLETS PO SCH (10:00)
[2023-06-24] MEDS ORDERED: amLODIPine BESYLATE 5 MG TABLET (FP) PO SCH (10:00)
[2023-06-24] MEDS ORDERED: ENOXAPARIN NA (PORCINE) 40 MG/0.4 ML DISP.SYRIN SQ SCH ×2 (10:00)
[2023-06-24 11:07] VITALS: BP 147/92; PULSE 76; TEMP 98.4
[2023-06-24] MEDS ORDERED: ATORVASTATIN CA 40 MG TABLET (FP) PO SCH (22:00)
== END 2023-06-24 14:32 | disposition other institution (70) ==
LOC: JER 18:29 → JERBED 23:22 → J4W 06-24 02:21
PROVIDERS: ADMIT Internal Medicine; ATTEND Internal Medicine
PROC: 3E023GC Introduction of Other Therapeutic Substance into Muscle, Percutaneous Approach (ICD-10-PCS; principal; 2023-06-23)
PROC: 3E033NZ Introduction of Analgesics, Hypnotics, Sedatives into Peripheral Vein, Percutaneous Approach (ICD-10-PCS; 2023-06-23)
DX: R07.9 Chest pain, unspecified (principal); F19.10 Other psychoactive substance abuse, uncomplicated; F25.9 Schizoaffective disorder, unspecified; F31.9 Bipolar disorder, unspecified; J45.909 Unspecified asthma, uncomplicated; F41.0 Panic disorder [episodic paroxysmal anxiety]; Z59.00 Homelessness unspecified; I10 Essential (primary) hypertension; G24.01 Drug induced subacute dyskinesia; E78.5 Hyperlipidemia, unspecified; I69.854 Hemiplegia and hemiparesis following other cerebrovascular disease affecting left non-dominant side; F17.200 Nicotine dependence, unspecified, uncomplicated; Z91.018 Allergy to other foods
CPT/HCPCS: 36415; 71045-TC-FY; 80053; 80307; 83735; 84100; 84484; 85025; 85027; 85610; 85730; 93005; 93010; 96372; 99285-25; G0378

== ENCOUNTER 2024-03-18 11:00 | Inpatient (IN) | payer OTHER ==
[2024-03-18 11:39] VITALS: BMI 21.6
[2024-03-18] MEDS ORDERED: guaiFENesin 600 MG TABLET.ER (FP) PO PRN (12:34)
[2024-03-18] MEDS ORDERED: NALOXONE HCL (KLOXXADO) 8 MG SPRAY NS PRN (12:34)
[2024-03-18] MEDS ORDERED: BENZOCAINE/MENTHOL (CHLORASEPTIC ) LOZENGE MM PRN (12:34)
[2024-03-18] MEDS ORDERED: IBUPROFEN 400 MG TABLET (FP) PO PRN (12:34)
[2024-03-18] MEDS ORDERED: BISMUTH SUBSALICYLATE 524 MG/30 ML PO PRN (12:34)
[2024-03-18] MEDS ORDERED: POLYETHYLENE GLYCOL (HEALTHYLAX) 3350 17 GM PACKET PO PRN (12:34)
[2024-03-18] MEDS ORDERED: ONDANSETRON *ODT* 4 MG TABLET SL PRN (12:34)
[2024-03-18] MEDS ORDERED: ACETAMINOPHEN 325 MG TABLET (FP) PO PRN (12:34)
[2024-03-18] MEDS ORDERED: NALOXONE HCL 0.4 MG/ML VIAL IM PRN (12:34)
[2024-03-18] MEDS ORDERED: BENZONATATE 200 MG CAPSULE PO PRN (12:34)
[2024-03-18] MEDS ORDERED: MAGNESIUM HYDROX 2400MG/30ML ORAL SUSPENSION 30 ML CUP PO PRN (12:34)
[2024-03-18] MEDS ORDERED: LOPERAMIDE HCL 2 MG CAPSULE PO PRN (12:34)
[2024-03-18] MEDS ORDERED: LISINOPRIL 10 MG TABLET ONE (12:56)
[2024-03-18] MEDS: HYDROCHLOROTHIAZIDE 12.5 MG CAPSULE (FP) PO SCH (13:00)
[2024-03-18] MEDS: LISINOPRIL 20 MG TABLET PO SCH (13:00)
[2024-03-18] MEDS: amLODIPine BESYLATE 5 MG TABLET (FP) PO SCH (13:00)
[2024-03-18] MEDS: BUDESONIDE/FORMETEROL FUMARATE 160/4.5 mcg INHALER IH SCH (14:41)
[2024-03-18] MEDS: AMANTADINE HCL 100 MG TABLET PO SCH (15:03)
[2024-03-18] MEDS: BUDESONIDE/FORMETEROL FUMARATE 160/4.5 mcg INHALER IH ONE (16:06)
[2024-03-18] MEDS: diazePAM 5 MG TABLET PO SCH (17:35)
[2024-03-18] MEDS: THIAMINE 100 MG TABLET PO SCH (22:05)
[2024-03-18] MEDS: MELATONIN 5 MG TABLETS PO SCH (22:05)
[2024-03-18] MEDS: ATORVASTATIN CA 40 MG TABLET (FP) PO SCH (22:05)
[2024-03-19] MEDS: PRENATAL VITAMINS W/ FOLIC ACID TABLET (FP) PO SCH (10:06)
[2024-03-19] MEDS: ASPIRIN COATED 81 MG TABLET.EC PO SCH (10:07)
[2024-03-19] MEDS: OLANZapine 10 MG TABLET PO SCH (10:07)
[2024-03-19 11:40] LABS: HEMATOCRIT 38.8 % (35.4-49); HEMOGLOBIN 13.3 GM/dL (11.7-16.9); MCH 29.8 pg (25.7-33.7); MCHC 34.3 g/dl (32.0-35.9); MEAN CELL VOLUME 86.7 fl (80-96); MEAN PLT VOLUME 8.3 fl (7.5-11.1); PLATELET COUNT 223 10^3/uL (134-434); RBC 4.48 M/mm3 (4.00-5.60); RDW 13.6 % (11.9-15.9)
[2024-03-19 11:43] LABS: POTASSIUM 3.7 mmol/L (3.5-5.1)
[2024-03-19 11:46] LABS: CALCIUM 8.9 mg/dL (8.5-10.1)
[2024-03-19 11:47] LABS: ALBUMIN 3.7 g/dl (3.4-5.0); BLOOD UREA NITROGEN 19.8 mg/dL (7-18)
[2024-03-19 11:50] LABS: CREATININE 0.8 mg/dL (0.55-1.3)
[2024-03-19 11:51] LABS: TOT PROT 6.8 g/dl (6.4-8.2)
[2024-03-19 11:52] LABS: BILIRUBIN,TOTAL 0.8 mg/dL (0.2-1)
[2024-03-19] MEDS: BENZTROPINE MESYLATE 1 MG TABLET PO SCH (12:17)
[2024-03-19] MEDS: MAG HYDROX/AL HYDROX/SIMETH 30 ML UNIT-DOSE CUP PO PRN (14:44)
[2024-03-19] MEDS: DICYCLOMINE HCL 10 MG CAPSULE PO PRN (17:22)
[2024-03-19] MEDS: LITHIUM CARBONATE 450 MG TABLET.ER PO SCH (22:15)
[2024-03-19] MEDS: OLANZapine 7.5 MG TABLET PO SCH (22:16)
[2024-03-20] MEDS: diazePAM 5 MG TABLET PO SCH (05:18)
[2024-03-20] MEDS: IBUPROFEN 600 MG TABLET (FP) PO PRN (10:05)
[2024-03-20] MEDS: diphenhydrAMINE HCL 50 MG CAPSULE PO PRN (10:06)
[2024-03-20] MEDS: diazePAM 5 MG TABLET PO PRN (17:24)
[2024-03-21] MEDS: diazePAM 5 MG TABLET PO SCH (05:15)
[2024-03-21] MEDS: METHOCARBAMOL 500 MG TABLET PO PRN (19:33)
[2024-03-21] MEDS: hydrOXYzine PAMOATE 25 MG CAPSULE (FP) PO PRN (19:33)
[2024-03-22] MEDS: diazePAM 5 MG TABLET PO ONE (05:13)
[2024-03-22 06:43] VITALS: RESP 16
[2024-03-22 09:58] VITALS: BP 119/63; PULSE 72; TEMP 97.3
== END 2024-03-22 11:14 | disposition home or self-care (01) | DRG 774 ==
LOC: YASAS 11:00 → Y6N 12:35
PROVIDERS: ADMIT Allergy & Immunology; ATTEND Surgery
PROC: HZ2ZZZZ Detoxification Services for Substance Abuse Treatment (ICD-10-PCS; principal; 2024-03-18)
DX: F10.230 Alcohol dependence with withdrawal, uncomplicated (principal); F13.20 Sedative, hypnotic or anxiolytic dependence, uncomplicated; F14.20 Cocaine dependence, uncomplicated; F12.20 Cannabis dependence, uncomplicated; F17.213 Nicotine dependence, cigarettes, with withdrawal; F25.1 Schizoaffective disorder, depressive type; F19.980 Other psychoactive substance use, unspecified with psychoactive substance-induced anxiety disorder; F19.982 Other psychoactive substance use, unspecified with psychoactive substance-induced sleep disorder; I10 Essential (primary) hypertension; D70.9 Neutropenia, unspecified; J45.20 Mild intermittent asthma, uncomplicated; E78.5 Hyperlipidemia, unspecified; R73.9 Hyperglycemia, unspecified; G24.01 Drug induced subacute dyskinesia; R00.1 Bradycardia, unspecified; R94.31 Abnormal electrocardiogram [ECG] [EKG]; M54.59 Other low back pain; G89.29 Other chronic pain; I69.351 Hemiplegia and hemiparesis following cerebral infarction affecting right dominant side; R26.2 Difficulty in walking, not elsewhere classified; Z99.89 Dependence on other enabling machines and devices; Z86.69 Personal history of other diseases of the nervous system and sense organs; Z91.51 Personal history of suicidal behavior; Z56.0 Unemployment, unspecified
CPT/HCPCS: 36415; 80053; 80305; 80307; 84484; 85027; 86780; 93005; 93010